=== PATIENT | female | born 1965 | race Caucasian/White ===

== ENCOUNTER 2020-01-21 07:39 | Outpatient (CLI) | payer OTHER, SELFPAY ==
--- NOTE | ~2020-01-21 | DEXA_ITS ---
Bone Density Report Name: Whitley Zarate Age: 54 Sex: Female Ethnicity: White Date of : 1965 Indication: postmenopausal; height loss; hysterectomy; Referring Provider: LORA ALEXANDER Study: Bone densitometry was performed. Exam Date: January 21, 2020 Accession number: [id number] Bone Density: Region BMD T-score Z-score Classification AP Spine (L1-L4) 1.185 1.3 2.4 Normal Femoral Neck (Left) 0.896 0.4 1.5 Normal Total Hip (Left) 1.072 1.1 1.8 Normal Total Hip Bilateral Avg 1.061 1.0 1.7 Normal Femoral Neck (Right) 0.840 -0.1 1.0 Normal Total Hip (Right) 1.048 0.9 1.6 Normal World Health Organization criteria for BMD impression classify patients as: Normal (T-score at or above -1.0), Osteopenia (T-score between -1.0 and -2.5), or Osteoporosis (T-score at or below -2.5). 10-year Fracture Risk: FRAX not reported because: All T-scores for Spine Total, Hip Total, Femoral Neck at or above -1.0 Previous Exams: Region Exam Age BMD T-score BMD Change BMD Change Date g/cm2 vs Baseline vs Previous AP Spine(L1-L4) 01/21/2020 54 1.185 1.3 -0.024(-2.0%)# -0.024(-2.0%)# 09/24/2015 49 1.209 1.5 Total Hip(Left) 01/21/2020 54 1.072 1.1 0.013(1.2%)# 0.013(1.2%)# 09/24/2015 49 1.059 1.0 Total Hip(Right) 01/21/2020 54 1.048 0.9 -0.020(-1.9%)# -0.020(-1.9%)# 09/24/2015 49 1.068 1.0 *Denotes significance at 95% confidence level, LSC for AP Spine = 0.022 g/cm2, LSC for Total Hip = 0.027 g/cm2 Clinical Information Provided by Patient: Has the following medical conditions: Hysterectomy Patient maximum height was 68 Menopause Age: 48 No regular weight bearing exercise Drinks caffeinated beverages Onset of menses at age 11 Number of children 2 Impression: The patient has normal bone mass. No significant bone loss was observed. Discussion: BONE DENSITY IS ABOVE THE MINIMUM DESIRABLE LEVEL AT ALL SKELETAL SITES TESTED. This patient?s bone mineral density is above the minimum desirable level (T-score -1.0 or better) at all sites measured. The patient should follow a healthful lifestyle (good nutrition with adequate calcium and vitamin D, and appropriate weight-bearing exercise). Follow-Up: Consider repeating this study in 5 years or sooner if there is some new clinical indication. Reported by: TEJAL on 01/21/2020 8:15:00 AM. Reviewed, dictated and finalized at location Juan J MORALES
--- NOTE | ~2020-01-21 | MM_ITS ---
EXAMINATION: MM screening mamie BI w larry HISTORY: Screening mammogram TECHNIQUE: Craniocaudal and mediolateral oblique 3-D tomosynthesis images were obtained and synthetic 2-D images were generated. CAD analysis was submitted and interpreted. COMPARISON: 07/06/2018, 01/09/2017, 09/24/2015 bilateral digital screening mammogram examinations BREAST PARENCHYMAL COMPOSITION: There are scattered areas of fibroglandular density. FINDINGS: There is no evidence of suspicious mass, calcification, or architectural distortion to sugg est malignancy in either breast. There has been no suspicious interval change. IMPRESSION: 1. No mammographic evidence of malignancy. 2. Recommend routine screening mammography in one year. BI-RADS Category 1: Negative Reviewed, dictated and finalized at location A.
== END 2020-01-21 07:40 | disposition home or self-care (01) ==
LOC: ANHIMG 07:42
PROVIDERS: PCP Family Medicine; Visit Provider Obstetrics & Gynecology
DX: Z78.0 Asymptomatic menopausal state (principal); Z12.31 Encounter for screening mammogram for malignant neoplasm of breast
CPT/HCPCS: 77063; 77067; 77080

== ENCOUNTER 2020-04-24 21:23 | Emergency (ER) | payer OTHER, SELFPAY ==
--- NOTE | ~2020-04-24 | CT_ITS ---
EXAMINATION: CT abdomen pelvis w con DATE: 04/24/2020 22:57 INDICATION: Upper abdominal pain and vomiting TECHNIQUE: Computed tomography (CT) of the abdomen and pelvis was performed with 100 mL Omnipaque-350 intravenous contrast. Automated exposure control and iterative reconstruction technique were employe d. The dose-length product was 1589.43 mGy-cm. COMPARISON: 02/25/2015 FINDINGS: There are patchy groundglass opacities throughout both lower lungs, many with centrilobular distribut ion consistent with pneumonia. Heart size is normal. No pericardial or pleural effusion. Small slidin g-type hiatal hernia. Diffuse hepatic steatosis. Gallbladder, spleen, pancreas, bilateral kidneys and left adrenal gland are normal. 1.3 cm right adrenal nodule which demonstrates low attenuation on CT dated 09/16/2009 consistent with adenoma. There are few scattered colonic diverticula without adjacent inflammatory change to suggest diverticulitis. Small bowel and appendix are normal. Bladder is [place]. The uterus is not identified and has likely been surgically resected. No free intraperitoneal gas or fluid. No pathologically enlarged abdominal or pelvic lymphadenopathy. Tiny fat-containing umbilic al hernia. L5 spondylolysis with bilateral pars intra-articular is defects and 3 mm anterolisthesis w ith respect to S1. IMPRESSION: 1. Patchy groundglass opacities throughout both lower lungs with differential including pneumonia inc luding atypical/viral, pulmonary edema, aspiration, drug induced toxicity, hypersensitivity pneumonit is and pulmonary hemorrhage. 2. Small sliding-type hiatal hernia. Reviewed, dictated and finalized at location A. IMPRESSION: 1. Patchy groundglass opacities throughout both lower lungs with differential i ncluding pneumonia including atypical/viral, pulmonary edema, aspiration, drug induced toxicity, hypersensitivity pneumonitis and pulmonary hemorrhage. 2. Small sliding-type hiatal hernia.
[2020-04-24 21:33] VITALS: BP 172/85; PULSE 84; RESP 19; O2SAT 99
[2020-04-24 21:49] LABS: Basophils Percent Auto 0.3 % (0.2-1.2); Eosinophils Absolute Auto 0.1 K/mm3 (0-0.3); Eosinophils Percent Auto 1.1 % (0-4.4); Hematocrit 39.7 % (37.0-47.0); Hemoglobin 13.7 g/dL (12.0-15.0); Immature Granulocyte Absolute 0.03 K/mm3 (0.00-0.031); Immature Granulocyte Percent A 0.5 % (0-0.5); Lymphocytes Absolute Auto 1.58 K/mm3 (0.9-3.2); Mean Corpuscular HGB Conc 34.5 g/dl (32-36); Mean Corpuscular Hemoglobin 30.6 pg (26-34); Mean Corpuscular Volume 88.6 fl (80-100); Mean Platelet Volume 10.1 fl (7.4-10.4); Monocytes Absolute Auto 0.5 K/mm3 (0.1-0.6); Monocytes Percent Auto 7.6 % (2.6-8.5); Neutrophils Absolute Auto 4.4 K/mm3 (1.3-6.7); Neutrophils Percent Auto 66.5 % (45.5-73.1); Platelet Count Result 172 k/mm3 (150-375); Red Blood Count 4.48 M/mm3 (4.2-5.4); Red Cell Distribution Width 12.6 % (11.5-14.5); White Blood Count 6.6 K/mm3 (4.5-10.0)
[2020-04-24 22:01] LABS: Alanine Aminotransferase 45 U/L (4-35); Albumin Level 4.1 g/dL (3.5-5.1); Alkaline Phosphatase 70 U/L (38-126); Anion Gap 8 mmol/L (8-16); Aspartate Amino Transferase 47 U/L (14-36); Bilirubin,Total 0.6 mg/dL (0.2-1.3); Blood Urea Nitrogen 13 mg/dL (7-17); Calcium 8.9 mg/dL (8.4-10.2); Carbon Dioxide 25 mmol/L (22-30); Chloride 107 mmol/L (98-107); Estimated CRCL calculation 95 ml/min; Estimated Glomerular Filt Rate > 60; Glucose 104 mg/dL (65-105); Lipase 51 U/L (23-300); Potassium 3.4 mmol/L (3.4-5.0); Sodium 140 mmol/L (137-145)
[2020-04-24] MEDS: PROMETHAZINE HCL 25 MG/ML AMPUL 12.5 MG IV PUSH (23:14)
[2020-04-24] MEDS: MORPHINE SULFATE 4 MG/ML INJ IV PUSH (23:14)
[2020-04-24 23:17] VITALS: BP 144/72; PULSE 61; RESP 18; O2SAT 99
[2020-04-24] MEDS: SODIUM CHLORIDE 0.9% IV 1,000 ML 999 ML IV CONT (23:17)
[2020-04-24 23:37] VITALS: BP 129/53; PULSE 62
[2020-04-24 23:38] VITALS: BP 153/89; PULSE 73
[2020-04-24 23:39] VITALS: BP 159/88; PULSE 70
[2020-04-24 23:59] LABS: Add Urine Microscopic? YES; Appearance Urine Clear (Clear); Bilirubin Urine Negative (Negative); Blood Urine Negative (Negative); Color Urine Yellow (Yellow); Glucose Urine UA Negative (Negative); Ketones Urine Negative (Negative); Leukocyte Esterase Ur Trace LEU/UL (Negative); Mucus Urine Rare /lpf; Nitrate Urine Negative (Negative); Protein Urine Negative (Negative); RBC Urine 0-2 /hpf (0-2); Squamous Epithelial Cell Urine Rare /hpf (Few)
[2020-04-25 00:03] LABS: Specific Grav Ur > 1.060 (1.001-1.035)
--- NOTE | 2020-04-25 00:34 | ED.GENADULT ---
HPI - General Adult General Chief complaint: Nausea/Vomiting/Diarrhea Stated complaint: vomiting, covid positive Time Seen by Provider: 04/24/20 21:32 History of Present Illness HPI narrative: Patient is a 54-year-old female who presents ER with nausea and vomiting. Reports its been extreme over the last couple days with lots of dry heaving. Very little emesis. She is also had 4 loose stools a day for the last couple of days. PCP called and Zofran which is been of no relief to her. Recently tested positive for COVID-19. Denies any new cough or shortness of breath. No fever/chills/sweats. No known sick contacts with GI illness. Related Data Allergies Allergy/AdvReac Type Severity Reaction Status Date / Time No Known Allergies Allergy Verified 04/24/20 21:32 Review of Systems Review of Systems: All systems reviewed & are unremarkable except as noted in HPI and below Constitutional: Constitutional: Denies chills, Reports fatigue and Denies fever(s) ENT: Denies nasal congestion and Denies sore throat Cardiovascular: Cardiovascular: Denies chest pain and Denies radiating jaw, neck or arm pain Respiratory: Respiratory: Denies cough, Denies dyspnea and Denies wheezing Gastrointestinal: Gastrointestinal: Reports abdominal pain (Diffuse discomfort from retching), Reports diarrhea, Reports nausea and Reports vomiting Genitourinary: Genitourinary: Denies nocturia and Denies dysuria PMFSH Past Medical History Medical History (Updated 04/25/20 @ 00:[address] MD) GERD (gastroesophageal reflux disease) H/O: HTN (hypertension) Surgical History Surgical History (Updated 04/25/20 @ 00:[address] MD) H/O: hysterectomy Family History Family History (Updated 02/12/15 @ 07:44 by DOCTOR UNKNOWN) Father Hypertension Mother Hypertension Family history of malignant neoplasm of kidney Other Family history of malignant neoplasm Social History Social History Smoking status: Never smoker Second hand tobacco smoke exposure: No Alcohol intake: current Exam Narrative: Exam Narrative: GENERAL: Uncomfortable-appearing, well-nourished, and in no acute distress. HEAD: Normocephalic, atraumatic. CHEST: Clear to auscultation. No respiratory distress. HEART: Regular rate and rhythm. Normal peripheral pulses. ABDOMEN: Soft, nontender, nondistended. EXTREMITIES: Normal range of motion. No edema. NEURO: Alert and oriented x3. PSYCH: Normal mood and affect. Course Course Emergency Course: Feels much better with morphine and Phenergan. Discharge home with supportive therapy. Informed of CT results and need for azithromycin for coverage related pneumonia and patient verbalized understanding. Vital Signs Vital signs: Vital Signs Pulse Rate 84 04/24/20 21:33 Respiratory Rate 19 04/24/20 21:33 Blood Pressure 172/85 H 04/24/20 21:33 Pulse Oximetry 99 04/24/20 21:33 Pulse Rate 70 04/24/20 23:39 Respiratory Rate 18 04/24/20 23:17 Blood Pressure 159/88 H 04/24/20 23:39 Pulse Oximetry 99 04/24/20 23:17 Medical Decision Making Vital Signs Vital Signs: Vital Signs Pulse Rate 84 04/24/20 21:33 Respiratory Rate 19 04/24/20 21:33 Blood Pressure 172/85 H 04/24/20 21:33 Pulse Oximetry 99 04/24/20 21:33 Pulse Rate 70 04/24/20 23:39 Respiratory Rate 18 04/24/20 23:17 Blood Pressure 159/88 H 04/24/20 23:39 Pulse Oximetry 99 04/24/20 23:17 Lab Data Result diagrams: 04/24/20 21:41 04/24/20 21:41 Labs: Lab Results 04/24/20 04/24/20 04/24/20 Range/Units 21:41 21:41 23:46 WBC 6.6 (4.5-10.0) K/mm3 RBC 4.48 (4.2-5.4) M/mm3 Hgb 13.7 (12.0-15.0) g/dL Hct 39.7 (37.0-47.0) % MCV 88.6 (80-100) fl MCH 30.6 (26-34) pg MCHC 34.5 (32-36) g/dl RDW 12.6 (11.5-14.5) % Plt Count 172 (150-375) k/mm3 MPV 10.1 (7.4-10.4) fl Immature Gran % (Auto) 0.5 (0-0
[2020-04-25 00:59] VITALS: BP 124/75; PULSE 58; RESP 18; O2SAT 98
== END 2020-04-25 01:01 | disposition home or self-care (01) ==
PROVIDERS: Emergency Provider Emergency Medicine; PCP Family Medicine
DX: U07.1 COVID-19 (principal); J12.89 Other viral pneumonia; R11.2 Nausea with vomiting, unspecified; K21.9 Gastro-esophageal reflux disease without esophagitis; I10 Essential (primary) hypertension
CPT/HCPCS: 36415; 74177; 80053; 81001; 83690; 85025; 87086; 87088; 96361; 96374; 96375; 99284; J2270; J2550; J7030; Q9967

== ENCOUNTER 2020-06-04 11:20 | Outpatient (CLI) | payer OTHER, SELFPAY ==
[2020-06-04 11:58] LABS: Alanine Aminotransferase 28 U/L (4-35); Albumin Level 4.3 g/dL (3.5-5.1); Alkaline Phosphatase 63 U/L (38-126); Anion Gap 9 mmol/L (8-16); Aspartate Amino Transferase 30 U/L (14-36); Bilirubin,Total 0.6 mg/dL (0.2-1.3); Blood Urea Nitrogen 20 mg/dL (7-17); Calcium 9.3 mg/dL (8.4-10.2); Carbon Dioxide 27 mmol/L (22-30); Chloride 107 mmol/L (98-107); Cholesterol 138 mg/dL (0-200); Estimated Glomerular Filt Rate > 60; Glucose 103 mg/dL (65-105); HDL Direct 31 mg/dL; Potassium 3.7 mmol/L (3.4-5.0); Sodium 143 mmol/L (137-145); Triglycerides 112 mg/dL (<150)
[2020-06-04 12:10] LABS: LDL Cholesterol Direct 83 mg/dL
== END 2020-06-04 11:21 | disposition home or self-care (01) ==
LOC: ANHLAB 11:21
PROVIDERS: Visit Provider Nurse Practitioner Family
DX: I10 Essential (primary) hypertension (principal); Z13.29 Encounter for screening for other suspected endocrine disorder
CPT/HCPCS: 36415; 80053; 80061; 84443

== ENCOUNTER 2020-08-21 07:49 | Emergency (ER) | payer OTHER, SELFPAY ==
[2020-08-21 07:56] VITALS: BP 196/98; PULSE 76; RESP 17; TEMP 36.6; O2SAT 100
--- NOTE | 2020-08-21 08:00 | ED.GENADULT ---
HPI - General Adult General Chief complaint: Neuro Symptoms/Deficit Stated complaint: allergice reaction Time Seen by Provider: 08/21/20 07:53 Source: patient Mode of arrival: ambulatory Limitations: no limitations History of Present Illness HPI narrative: Patient is a 54-year-old female who presents for evaluation facial weakness. Patient reports she had feeling as if she had some heaviness sensation in her face, both cheeks and lower jaw that started approximately 40 minutes ago. Patient was worried she was having a reaction to the new Covid vaccine which was administered to her at 6 AM. Patient has a history of hypertension, works overnight shift and has not had any of her hypertensive medication. She is denying any headache, vision changes, chest pain, difficulty with speech, shortness of breath, rashes, nausea, vomiting or diarrhea. No difficulty swallowing. No history of allergic reactions in the past. Patient denies any upper or lower extremity weakness or numbness. Related Data Allergies Allergy/AdvReac Type Severity Reaction Status Date / Time No Known Allergies Allergy Verified 08/21/20 08:02 Review of Systems Review of Systems: Narrative: CONSTITUTIONAL: Denies fever, chills, or sweats. EYES: Denies visual changes, redness, or discharge. ENT: Denies rhinorrhea, congestion, sore throat, or otalgia. CARDIOVASCULAR: Denies chest pain, palpitations, or edema. RESPIRATORY: Denies cough or dyspnea. GASTROINTESTINAL: Denies abdominal pain, nausea, vomiting, or diarrhea. GENITOURINARY: Denies dysuria or hematuria. SKIN: Denies rash or itching. MUSCULOSKELETAL: Denies back pain, joint pain, or myalgia. NEUROLOGIC: Denies headache, numbness, or weakness. FOR[facility]LY [facility] Past Medical History Medical History GERD (gastroesophageal reflux disease) H/O: HTN (hypertension) Surgical History Surgical History H/O: hysterectomy History of dilation and curettage History of endometrial ablation History of total hysterectomy Previous section x 2 Family History Family History Father Hypertension Mother Hypertension Family history of malignant neoplasm of kidney Other Family history of malignant neoplasm Social History Social History Smoking status: Never smoker Second hand tobacco smoke exposure: No Alcohol intake: current Gender identity (if verbalized by the patient): Female Exam Narrative: Exam Narrative: GENERAL: Awake, alert, conversant HEAD: Normocephalic, atraumatic. No facial edema. No lip edema. EYES: PERRLA and EOMI. ENT: Nares clear, no rhinorrhea or epistaxis. Mucous membranes moist. Uvula is midline. No trismus. No tongue deviation. NECK: Supple. CHEST: No respiratory distress, breathing even and non labored HEART: Regular rate, sinus rhythm ABDOMEN:Non distended, non tender EXTREMITIES: Normal range of motion. No edema. SKIN: Warm, dry, no rash. NEURO:No focal deficits. Alert and oriented x3. Finger to nose intact bilaterally. EOMs intact without nystagmus. No facial droop/asymmetry noted bilaterally. Pt can discern sharp/dull in V1,V2,V3 distribution. Uvula midline. No tongue deviation. Smile is symmetric. Grimace intact. Intact sensation in face. Hearing intact bilaterally. Shoulder shrug intact. Strength 5/5 bilateral upper extremities. Strength 5/5 bilateral lower extremities. Reflexes 2+ patellar. Heel to arevalo intact bilaterally. Ambulatory without ataxia. Course Vital Signs Vital signs: Vital Signs Temperature 36.6 C 08/21/20 07:56 Pulse Rate 76 08/21/20 07:56 Respiratory Rate 17 08/21/20 07:56 Blood Pressure 196/98 H 08/21/20 07:56 Pulse Oximetry 100 08/21/20 07:56 Temperature 36.6 C 08/21/20 07:56 Pulse Rate 71 08/21/20 08:38 Res
[2020-08-21] MEDS: diphenhydrAMINE HCl CAP 25 MG CAPSULE PO (08:07)
[2020-08-21] MEDS: FAMOTIDINE 20 MG TABLET PO (08:07)
[2020-08-21 08:38] VITALS: BP 134/87; PULSE 71; RESP 14; O2SAT 99
== END 2020-08-21 09:47 | disposition home or self-care (01) ==
PROVIDERS: Emergency Provider Emergency Medicine
DX: R20.2 Paresthesia of skin (principal); K21.9 Gastro-esophageal reflux disease without esophagitis; I10 Essential (primary) hypertension
CPT/HCPCS: 99283; A9270; J1100

== ENCOUNTER → 2020-12-22 10:57 | Outpatient (CLI) | payer OTHER, SELFPAY ==
[2020-12-22 13:44] LABS: Influenza Control Positive
[2020-12-22 20:31] LABS: SARS-CoV-2 RNA PCR Negative
== END ==
PROVIDERS: PCP Family Medicine; Visit Provider Nurse Practitioner Family
DX: Z20.822 Contact with and (suspected) exposure to COVID-19 (principal); R68.89 Other general symptoms and signs
CPT/HCPCS: 87804; C9803; U0003; U0005

== ENCOUNTER 2020-12-23 13:08 | Outpatient (CLI) | payer OTHER, SELFPAY ==
--- NOTE | ~2020-12-23 | XR_ITS ---
EXAMINATION: XR chest 2V DATE: 12/23/2020 13:30 INDICATION: Fever. Cough. TECHNIQUE: Frontal and lateral views of the chest were obtained. COMPARISON: Chest 2 views 02/15/2010, CT abdomen and pelvis 04/24/2020 FINDINGS: The chest demonstrates clear lungs without pneumonia, pleural effusion, or pneumothorax. Th e heart size is normal. IMPRESSION: 1. No acute cardiopulmonary disease. Reviewed, dictated and finalized at location B.
[2020-12-23 13:28] LABS: Basophils Absolute Auto 0.1 K/mm3 (0.0-0.1); Basophils Percent Auto 0.3 % (0.2-1.2); Eosinophils Absolute Auto 0.3 K/mm3 (0-0.3); Eosinophils Percent Auto 1.7 % (0-4.4); Hemoglobin 13.9 g/dL (12.0-15.0); Immature Granulocyte Percent A 0.7 % (0-0.5); Lymphocytes Absolute Auto 2.38 K/mm3 (0.9-3.2); Lymphocytes Percent Auto 16.6 % (18.3-44.2); Mean Corpuscular HGB Conc 33.9 g/dl (32-36); Mean Corpuscular Hemoglobin 29.9 pg (26-34); Mean Corpuscular Volume 88.2 fl (80-100); Mean Platelet Volume 10.2 fl (7.4-10.4); Monocytes Percent Auto 6.6 % (2.6-8.5); Neutrophils Absolute Auto 10.6 K/mm3 (1.3-6.7); Neutrophils Percent Auto 74.1 % (45.5-73.1); Platelet Count Result 245 k/mm3 (150-375); Red Blood Count 4.65 M/mm3 (4.2-5.4); Red Cell Distribution Width 12.7 % (11.5-14.5); White Blood Count 14.3 K/mm3 (4.5-10.0)
[2020-12-23 13:39] LABS: Alanine Aminotransferase 24 U/L (4-35); Albumin Level 4.2 g/dL (3.5-5.1); Alkaline Phosphatase 79 U/L (38-126); Anion Gap 8 mmol/L (8-16); Aspartate Amino Transferase 34 U/L (14-36); Bilirubin,Total 0.4 mg/dL (0.2-1.3); Blood Urea Nitrogen 20 mg/dL (7-17); Calcium 9.3 mg/dL (8.4-10.2); Carbon Dioxide 30 mmol/L (22-30); Chloride 103 mmol/L (98-107); Estimated Glomerular Filt Rate > 60; Glucose 96 mg/dL (65-105); Potassium 3.7 mmol/L (3.4-5.0); Sodium 141 mmol/L (137-145)
[2020-12-25 14:06] LABS: CMV IgG Antibody >10.00 U/mL (<0.60)
[2020-12-26 19:45] LABS: CMV IgM Antibody <30.00 AU/mL (<30.00)
[2020-12-27 21:57] LABS: EBV Nuclear Ab Antibody >600.00 U/mL (<18.00); EBV Nuclear Ab Interpretation Past; EBV Virus Capsid Ag IgM Ab <36.00 U/mL (<36.00)
== END 2020-12-23 13:09 | disposition home or self-care (01) ==
LOC: ANHLAB 13:12
PROVIDERS: PCP Family Medicine; Visit Provider Nurse Practitioner Family
DX: R50.9 Fever, unspecified (principal); R68.89 Other general symptoms and signs; R05 Cough
CPT/HCPCS: 36415; 71046; 80053; 85025; 86644; 86645; 86664; 86665

== ENCOUNTER 2020-12-24 16:45 | Observation (INO) | payer OTHER, SELFPAY ==
[2020-12-24] VITALS (7 sets, daily range): BP systolic 112–167; BP diastolic 87–103; PULSE 85–102; RESP 14–21; TEMP 36.3–37.6; O2SAT 96–100; BMI 43.9
--- NOTE | ~2020-12-24 | US_ITS ---
EXAMINATION: US venous doppler [facility] DATE: 12/25/2020 09:02 INDICATION: Respiratory abnormality with hemoptysis. Fever. TECHNIQUE: Grayscale ultrasound images without and with compression and Doppler ultrasound images of the bilateral lower extremity veins were obtained. COMPARISON: None. FINDINGS: The visualized portions of right common femoral vein, profunda (deep) femoral vein, femoral vein, pop liteal vein, posterior tibial veins, peroneal veins, gastrocnemius vein and greater saphenous vein ou tflow are patent. The visualized portions of left common femoral vein, profunda femoral vein, femoral vein, popliteal v ein, posterior tibial veins, peroneal veins, gastrocnemius vein and greater saphenous vein outflow ar e patent. IMPRESSION: 1. No deep venous thrombosis in either lower limb. Reviewed, dictated and finalized at location A.
--- NOTE | ~2020-12-24 | CT_ITS ---
EXAMINATION: CTA chest PE protocol DATE: 12/24/2020 17:48 CDT INDICATION: Fever, cough and hemoptysis TECHNIQUE: Computed tomographic angiography (CTA) of the chest was performed with 100 mL Omnipaque-35 0 intravenous contrast. The dose-length product was 982.23 mGy-cm. Maximum intensity projection 3D-re constructions of the aorta and other arteries were constructed by the technologist on a separate work station. Automated exposure control and iterative reconstruction technique were employed. COMPARISON: None. FINDINGS: Heart size is normal. Mild mediastinal lymphadenopathy. For instance prevascular lymph node measures 1 cm, axial image 82. Subcarinal lymph node measures 12 mm. No significant hilar lymphadeno benita. No evidence for aortic aneurysm or dissection. There are possible mild filling defects in the left lower lobe subsegmental pulmonary arteries, altho ugh evaluation limited by motion artifact. There is a wedge-shaped area of consolidation in the left lower lobe peripheral to this location, suspicious for pulmonary infarction. No endobronchial lesions . Trace left pleural effusion. 1.5 cm right adrenal nodule, likely benign adenoma in the absence of k nown malignancy. IMPRESSION: 1. Possible subsegmental pulmonary embolism left lower lobe with associated pulmonary infarction. Can not exclude other etiologies for left lower lobe consolidation such as pneumonia or neoplasm. Recomme nd follow-up CT as clinically warranted. 2: Mediastinal lymphadenopathy, nonspecific. Reviewed, dictated and finalized at location A. IMPRESSION: 1. Possible subsegmental pulmonary embolism left lower lobe with associated pul monary infarction. Cannot exclude other etiologies for left lower lobe consolid ation such as pneumonia or neoplasm. Recommend follow-up CT as clinically warra nted. 2: Mediastinal lymphadenopathy, nonspecific.
--- NOTE | ~2020-12-24 | CT_ITS ---
EXAMINATION: CTA chest PE protocol DATE: 12/26/2020 08:16 INDICATION: Left lower lobe pneumonia. TECHNIQUE: Computed tomography angiography (CTA) of the chest was performed with 100 mL Omnipaque-350 intravenous contrast timed to evaluate the pulmonary arteries. Coronal maximum intensity projection 3D-reconstructions were created by the technologist. Automated exposure control and iterative reconst ruction technique were employed. The dose-length product was 1047.50 mGy-cm. COMPARISON: Chest CT 12/24/2020, CT abdomen and pelvis 02/25/2015 FINDINGS: There are airspace and groundglass opacities and septal thickening in left lower lobe, cons istent with pneumonia. There is a trace left pleural effusion. The heart size is normal. No pericardi al effusion. There is no pulmonary embolus. There is mild left hilar and mediastinal lymphadenopathy, likely reactive. There is diffuse hepatic steatosis. There is a 17 mm mass in right adrenal gland me asuring soft tissue attenuation, stable from 02/25/2015, likely an adenoma. There is a 6.4 x 4.2 cm li faith posterior to distal right clavicle. There is mild thoracic spondylosis. IMPRESSION: 1. No pulmonary embolus. 2. Stable left lower lobe pneumonia. 3. Mild left hilar and mediastinal lymphadenopathy, likely reactive. Reviewed, dictated and finalized at location A.
[2020-12-24 17:29] LABS: Basophils Absolute Auto 0.1 K/mm3 (0.0-0.1); Basophils Percent Auto 0.4 % (0.2-1.2); Eosinophils Absolute Auto 0.3 K/mm3 (0-0.3); Eosinophils Percent Auto 1.7 % (0-4.4); Immature Granulocyte Absolute 0.14 K/mm3 (0.00-0.031); Immature Granulocyte Percent A 0.9 % (0-0.5); Lymphocytes Absolute Auto 2.26 K/mm3 (0.9-3.2); Lymphocytes Percent Auto 15.1 % (18.3-44.2); Mean Corpuscular Hemoglobin 30.6 pg (26-34); Mean Corpuscular Volume 87.5 fl (80-100); Monocytes Absolute Auto 0.8 K/mm3 (0.1-0.6); Monocytes Percent Auto 5.5 % (2.6-8.5); Neutrophils Absolute Auto 11.5 K/mm3 (1.3-6.7); Neutrophils Percent Auto 76.4 % (45.5-73.1); Platelet Count Result 275 k/mm3 (150-375); Red Blood Count 4.57 M/mm3 (4.2-5.4); Red Cell Distribution Width 12.4 % (11.5-14.5)
[2020-12-24 17:34] LABS: Prothrombin Time 13.3 Seconds (11.1-14.7)
[2020-12-24 17:36] LABS: Anion Gap 8 mmol/L (8-16); Blood Urea Nitrogen 21 mg/dL (7-17); Calcium 9.6 mg/dL (8.4-10.2); Carbon Dioxide 30 mmol/L (22-30); Chloride 103 mmol/L (98-107); Estimated CRCL calculation 83 ml/min; Estimated Glomerular Filt Rate > 60; Glucose 112 mg/dL (65-105); Potassium 3.7 mmol/L (3.4-5.0); Sodium 141 mmol/L (137-145)
--- NOTE | 2020-12-24 18:09 | ECG_ITS ---
Measurements Intervals [place] Rate: 94 P: 37 VT: 138 QRS: 15 QRSD: 86 T: 21 QT: 360 QTc: 452 Interpretive Statements SINUS RHYTHM POSSIBLE LEFT ATRIAL ENLARGEMENT BORDERLINE ST-T WAVE ABNORMALITY- ANTEROLAT/INF LEADS BASELINE ARTIFACT- I, II, AVR, AVF, V2 BORDERLINE ECG Electronically Signed On 12-24-2020 20:02:14 CDT by Beau Cohn D.O.
--- NOTE | 2020-12-24 18:13 | ED.GENADULT ---
HPI - General Adult General Chief complaint: Upper Respiratory Infection Stated complaint: fever, cough x 1 week Time Seen by Provider: 12/24/20 18:08 Source: RN notes reviewed History of Present Illness HPI narrative: Patient presents emergency department from PCPs office for hemoptysis. Patient states she has not been feeling well for the past week with symptoms of upper respiratory infection states she is been feeling tired and fatigued with a mild cough and fevers at night up to 101. Patient states that today she started having hemoptysis and went to the PCPs office and referred to the ER for further evaluation she denies having any chest pain, abdominal pain nausea or vomiting or any other symptoms patient has had Covid in April 2020 has had a Covid vaccine since that time with the patient receiving the Pfizer vaccine she denies any previous history of blood clots denies tobacco use is on blood pressure medication Related Data Allergies Allergy/AdvReac Type Severity Reaction Status Date / Time No Known Allergies Allergy Verified 12/24/20 17:08 Review of Systems Review of Systems: Narrative: Gen.: Reports fever ENT: Denies congestion Respiratory: See HPI CV: Denies chest pain or palpitations GI: Denies abdominal pain nausea, emesis or diarrhea denies burning, urgency, frequency or hematuria Musculoskeletal: Denies back pain or muscle pain Neuro: Denies numbness, tingling, weakness or focal weakness Skin: Denies rash Except as documented, all other systems reviewed and negative [facility] Past Medical History Medical History BMI 40.0-44.9, adult Body mass index [BMI] 34.0-34.9, adult (04/25/19) Body mass index [BMI] 45.0-49.9, adult (04/19/18) Body mass index [BMI]40.0-44.9, adult (03/09/17) Encounter for gynecological examination (general) (routine) without abnormal findings Encounter for other specified surgical aftercare Encounter for screening for malignant neoplasm of colon (03/09/17) GERD (gastroesophageal reflux disease) H/O: HTN (hypertension) Postmenopausal Recurrent ventral incisional hernia Vaginal dryness, menopausal Surgical History Surgical History H/O: hysterectomy History of dilation and curettage History of endometrial ablation History of total hysterectomy Previous section x 2 Family History Family History Father Hypertension Parkinson's disease Hyperlipidemia Mother Hypertension Family history of malignant neoplasm of kidney Sibling Hypertension Other Family history of malignant neoplasm Social History Social History Smoking status: Never smoker Second hand tobacco smoke exposure: No Alcohol intake: current Substance use: never Substance use type: does not use Additional occupation/education comments: RN Gender identity (if verbalized by the patient): Female Exam Narrative: Exam Narrative: APPEARANCE: No acute distress, nontoxic, resting in bed EYES: EOMI HEENT: Normocephalic, atraumatic, OMM RESPIRATORY: No respiratory distress Clear to auscultation bilaterally with no rhonchi wheezing or rales. CARDIOVASCULAR: Regular rate and rhythm without murmurs rubs or gallops. ABDOMINAL: Soft, nontender, nondistended, no rebound or guarding MUSCULOSKELETAl: Moves all extremities. No clubbing, cyanosis or edema. NEURO: Awake and alert. Following commands, speech normal, no focal deficits SKIN:: Warm, dry. No rashes lesions or abrasions PSYCHIATRIC: Normal affect/mood, Course Course Emergency Course: Discussed with Dr. Minor for pulmonary presentation work-up at this time recommends treating patient with both Lovenox as well as treatment for pneumonia will follow as inpatient Called Dr. Bullard and updated on CTA chest Discussed with TRACI Chavez for Dr. Gomez
--- NOTE | 2020-12-24 18:35 | PC.NURSE ---
Arrives ambulatory steady gait from triage, c/o feeling sick for a week, weakness, fevers x1 week, cough starting today with blood and clots, CTA today confirmed PE, denies hx blood clots, no thinners. Denies dyspnea on exertion.
[2020-12-24 19:04] LABS: Lactic Acid Reflex 0.8 mmol/L (0.7-2.1)
[2020-12-24 19:15] LABS: Troponin I < 0.012 ng/mL (0.000-0.034)
--- NOTE | 2020-12-24 19:21 | PC.NURSE ---
Pt states she presented to ED due to respiratory symptoms, coughing up blood and intermittent fever, chills with body aches at night. Pt denies nausea and emesis. Pt recently diagnosed with pneumonia. Pt alert and oriented x4 at this time. Breathing noted to be even and unlabored with O2 saturation at 96% on room air. Vitals are stable. Pt able to speak without difficulty. Spouse present at bedside. Call button and personal items within reach. Pt advised to press call button for assistance.
--- NOTE | 2020-12-24 19:58 | PC.NURSE ---
Report called to Lisa. Weston to send pt to floor.
[2020-12-24] MEDS: ENOXAPARIN 120 MG/0.8 ML SYRINGE SUB-Q (19:59)
--- NOTE | 2020-12-24 20:12 | PM.IMHP ---
H&P: HPI History of Present Illness Date/Time: 12/24/20 20:12 Chief Complaint: Hemoptysis today Narrative: This is a pleasant 55-year-old female with known history of hypertension and GERD who presented to the hospital from her primary care doctor's office secondary to bloody sputum. The patient is known to have had COVID-19 back in April but had been doing well since then. She reports that this past she started to feel fatigued and had fevers up to 101? F. Over the weekend she started to notice that she was developing exertional dyspnea. She was getting short of breath with talking and with any short distance walking. Today the patient started to cough bright red blood with clots and was sent to the hospital for evaluation by her doctor. The patient denies having any chest pain, sore throat, palpitations, abdominal pain, dysuria, hematuria, diarrhea, rectal bleeding, lower extremity pain, swelling, or redness. She denies having any previous history of blood clotting. She also denies any history of malignancy, hormone replacement therapy, or recent trauma. She does report however that in the beginning of November she traveled by car to [place] with her which was an 18 hour ride. The patient denies any family history of thrombophilia. The patient underwent CTA chest for PE protocol in the emergency room today which revealed possible subsegmental pulmonary embolism left lower lobe with associated pulmonary infarction and mediastinal lymphadenopathy. ER provider has treated the patient with therapeutic Lovenox, IV antibiotics, and consulted pulmonology who will see her tomorrow. On my encounter with the patient she is currently asymptomatic and has no other complaints. Review of Systems Review of Systems: All systems reviewed & are unremarkable except as noted in HPI and below PMFSH Past Medical History Medical History BMI 40.0-44.9, adult Body mass index [BMI] 34.0-34.9, adult (04/25/19) Body mass index [BMI] 45.0-49.9, adult (04/19/18) Body mass index [BMI]40.0-44.9, adult (03/09/17) Encounter for gynecological examination (general) (routine) without abnormal findings Encounter for other specified surgical aftercare Encounter for screening for malignant neoplasm of colon (03/09/17) GERD (gastroesophageal reflux disease) H/O: HTN (hypertension) Postmenopausal Recurrent ventral incisional hernia Vaginal dryness, menopausal Surgical History Surgical History H/O: hysterectomy History of dilation and curettage History of endometrial ablation History of total hysterectomy Previous section x 2 Family History Family History Father Hypertension Parkinson's disease Hyperlipidemia Mother Hypertension Family history of malignant neoplasm of kidney Sibling Hypertension Other Family history of malignant neoplasm Social History Social History Smoking status: Never smoker Second hand tobacco smoke exposure: No Alcohol intake: current Substance use: never Substance use type: does not use Additional occupation/education comments: RN Gender identity (if verbalized by the patient): Female Meds Home Medications and Allergies Home Medications Medication Instructions Recorded Confirmed Type hydrochlorothiazide 25 mg tablet 25 mg PO DAILY #90 tablet 06/04/20 07/09/20 Rx losartan 100 mg tablet 100 mg PO DAILY #90 tablet 06/04/20 07/09/20 Rx omeprazole 40 mg capsule,delayed 40 mg PO DAILY #90 cap 06/04/20 07/09/20 Rx release Allergies Allergy/AdvReac Type Severity Reaction Status Date / Time No Known Allergies Allergy Verified 12/24/20 17:08 Vital Signs Vital Signs - 24 hr 12/24/20 17:06 12/24/20 18:30 12/24/20 19:21 Temperature 36.9 C Pulse Rate
--- NOTE | 2020-12-24 21:02 | ADMGEN ---
This patient, Whitley Zarate, was admitted to 2 Medical Room 260-01. Patient/family oriented to hospital policies and general routines including ID bracelet, bed and alarms, visiting hours, pain management, procedures, bathroom and other care routines, personal items, smoking policy, room service/diet, and visiting hours. Information on how to activate the Rapid Response Team has been discussed. Patient/Family are encouraged to report perceived risks to care and to ask questions if they do not understand what they are told or what they should do.
[2020-12-24 21:45] LABS: Troponin I < 0.012 ng/mL (0.000-0.034)
[2020-12-24] MEDS: LORazepam (*CRX) 0.5 MG TABLET PO (22:46)
[2020-12-25] VITALS (9 sets, daily range): BP systolic 111–136; BP diastolic 51–63; PULSE 75–88; RESP 16–20; TEMP 36–36.5; O2SAT 97–98
[2020-12-25 00:49] LABS: Troponin I < 0.012 ng/mL (0.000-0.034)
[2020-12-25] MEDS: LORazepam (*CRX) 0.5 MG TABLET PO (03:53)
[2020-12-25 05:40] LABS: Basophils Absolute Auto 0.1 K/mm3 (0.0-0.1); Basophils Percent Auto 0.4 % (0.2-1.2); Eosinophils Absolute Auto 0.2 K/mm3 (0-0.3); Eosinophils Percent Auto 1.4 % (0-4.4); Hematocrit 36.5 % (37.0-47.0); Hemoglobin 12.4 g/dL (12.0-15.0); Immature Granulocyte Absolute 0.12 K/mm3 (0.00-0.031); Immature Granulocyte Percent A 0.8 % (0-0.5); Lymphocytes Absolute Auto 2.37 K/mm3 (0.9-3.2); Lymphocytes Percent Auto 15.6 % (18.3-44.2); Mean Corpuscular Hemoglobin 29.8 pg (26-34); Mean Corpuscular Volume 87.7 fl (80-100); Mean Platelet Volume 10.3 fl (7.4-10.4); Monocytes Absolute Auto 0.8 K/mm3 (0.1-0.6); Monocytes Percent Auto 4.9 % (2.6-8.5); Neutrophils Absolute Auto 11.7 K/mm3 (1.3-6.7); Neutrophils Percent Auto 76.9 % (45.5-73.1); Platelet Count Result 254 k/mm3 (150-375); Red Blood Count 4.16 M/mm3 (4.2-5.4); Red Cell Distribution Width 12.4 % (11.5-14.5); White Blood Count 15.2 K/mm3 (4.5-10.0)
[2020-12-25 05:53] LABS: Alanine Aminotransferase 24 U/L (4-35); Albumin Level 3.8 g/dL (3.5-5.1); Alkaline Phosphatase 69 U/L (38-126); Anion Gap 8 mmol/L (8-16); Aspartate Amino Transferase 27 U/L (14-36); Bilirubin,Total 0.4 mg/dL (0.2-1.3); Blood Urea Nitrogen 20 mg/dL (7-17); Calcium 8.8 mg/dL (8.4-10.2); Carbon Dioxide 28 mmol/L (22-30); Chloride 100 mmol/L (98-107); Estimated CRCL calculation 97 ml/min; Estimated Glomerular Filt Rate > 60; Glucose 146 mg/dL (65-105); Potassium 3.5 mmol/L (3.4-5.0); Sodium 136 mmol/L (137-145)
[2020-12-25] MEDS: ENOXAPARIN 120 MG/0.8 ML SYRINGE SUB-Q ×2 (07:43→18:50)
[2020-12-25] MEDS: hydroCHLOROthiazide 25 MG TABLET PO (08:09)
[2020-12-25] MEDS: LOSARTAN POTASSIUM 100 MG TABLET PO (08:10)
[2020-12-25] MEDS: PANTOPRAZOLE 40 MG TABLET PO ×2 (08:10→20:13)
--- NOTE | 2020-12-25 08:30 | PC.NURSE ---
To Radiology per wheelchair for ultrasound
--- NOTE | 2020-12-25 10:43 | PM.CNPUL ---
Assessment and Plan Assessment and plan (1) Community acquired pneumonia: Qualifiers: Laterality: left Lung location: lower lobe of lung Qualified Code(s): J18.9 - Pneumonia, unspecified organism Code(s): J18.9 - Pneumonia, unspecified organism Status: Acute Assessment and Plan: The patient's clinical history, examination and CT scan findings which I viewed myself or more consistent with community-acquired pneumonia rather than a pulmonary embolism with infarct. She had significant leukocytosis, lack of pleuritic chest pain and other symptoms that point more towards pneumonia. The CT scan shows a left lower lobe consolidation with surrounding haziness or ground-glass. I agree with the current treatment plan which is ceftriaxone plus of this azithromycin which can be switched to an oral fluoroquinolones such as levofloxacin when ready for discharge. I will continue Lovenox at therapeutic doses currently but repeat the CT of the chest tomorrow with IV contrast, at that time if there is no convincing evidence of a persistent pulmonary embolism then I will discontinue therapeutic anticoagulation. I will also start her on lactated Ringer's 75 cc an hour for 24-48 hours. 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 She states that the hemoptysis was mild and only 2 or 3 times the 1st was bright red blood and the 2nd was more of a blood clot. She does admit that there was sputum mixed with blood. She has no history of smoking cigarettes or anything else. She did develop COVID-19 in April of 2020 but recovered fully from that. She has received full vaccination for COVID-19 since then. She did travel to [place] on November 06 for about 8 days by car but took multiple stops and there was no. Of immobility for long period of time. She denies taking any hormone replacement therapy, denies any history of cancer or recent surgery. She denies any history of pulmonary embolism or DVT. She denies any history of lung diseases. There is no family history of thromboembolic disease either. A CT of the chest showed a dense left lower lobe consolidation and reported a possible subsegmental pulmonary emboli leading into the consolidative space. A differential of PE with pulmonary infarct versus pneumonia was given. Her symptoms though are more indicative of pneumonia rather than PE. The patient denies any pleuritic chest pain whatsoever And her lower extremity Dopplers for DVT were negative. Review of Systems Review of Systems: All systems reviewed & are unremarkable except as noted in HPI and below PMFSH Past Medical History Medical History BMI 40.0-44.9, adult Body mass index [BMI] 34.0-34.9, adult (04/25/19) Body mass index [BMI] 45.0-49.9, adult (04/19/18) Body mass index [BMI]40.0-44.9, adult (03/09/17) Encounter for gynecological examination (general) (routine) without abnormal findings Encounter for other specified surgical aftercare Encounter for screening for malignant neoplasm of colon (03/09/17) GERD (gastroesophageal reflux disease) H/O: HTN (hypertension) Postmenopausal Recurrent ventral incisional hernia Vaginal dryness, menopausal Surgical History Surgical History H/O: hysterectomy History of dilation and curettage History of endometrial ablation History of total hysterectomy Previous section x 2 Family History Family History Father Hypertension Parkinson's disease Hyperlipidemia Mother Hypertension Family histor
[2020-12-25] MEDS: LACTATED RINGERS 1,000 ML 75 ML IV CONT (11:35)
--- NOTE | 2020-12-25 11:36 | PM.IMPN ---
Progress Note: A&P Assessment and Plan (1) Embolism, pulmonary with infarction: Code(s): I26.99 - Other pulmonary embolism without acute cor pulmonale Status: Acute Assessment and Plan: Possible finding based on CTA chest results and history of hemoptysis which has resolved. Dr. Byers has been consulted and appreciate recommendations. Plans for repeat CTA chest tomorrow for reevaluation. Continue with therapeutic Lovenox of 1 mg/kg Q12hr for now Await CTA chest results Will have CC to go Xarelto and Eliquis if PE found on CTA tomorrow; patient prefers cheapest option. Continue pulmonology recommendations. Pain control as needed (2) Community acquired pneumonia: Qualifiers: Laterality: left Lung location: lower lobe of lung Qualified Code(s): J18.9 - Pneumonia, unspecified organism Code(s): J18.9 - Pneumonia, unspecified organism Status: Acute Assessment and Plan: Likely LLL CAP based on consolidation on CTA chest. Appreciate Pulmonology input. Leukocytosis stable with WBC at 15.2k Continue IV Rocephin and azithromycin for now; plans for transitioning to PO fluoroquinolone once clinically improved Sputum and blood cultures pending. Monitor closely (3) Leukocytosis: Qualifiers: Leukocytosis type: unspecified Qualified Code(s): D72.829 - Elevated white blood cell count, unspecified Code(s): D72.829 - Elevated white blood cell count, unspecified Status: Acute Assessment and Plan: Likely secondary to acute PE versus pneumonia. Monitor CBCD (4) Hemoptysis: Code(s): R04.2 - Hemoptysis Status: Acute Assessment and Plan: Likely secondary to pulmonary embolism. Resolved. (5) H/O: HTN (hypertension): Code(s): Z86.79 - Personal history of other diseases of the circulatory system Status: Chronic Assessment and Plan: BP 110s sys most recently Monitor blood pressure. Continue hydrochlorothiazide and losartan. (6) GERD (gastroesophageal reflux disease): Qualifiers: Esophagitis presence: esophagitis presence not specified Qualified Code(s): K21.9 - Gastro-esophageal reflux disease without esophagitis Code(s): K21.9 - Gastro-esophageal reflux disease without esophagitis Status: Chronic Assessment and Plan: Continue omeprazole Subjective Date/time seen: 12/25/20 11:36 Interval history: Patient is a pleasant 55-year-old female with known history of hypertension and GERD who is seen in follow up for suspected PE and associated pulmonary infarct based on CTA chest, as well as, CAP. Patient states she feels overall better today. Still has some RAYO. Hemoptysis has resolved. Subjective f/c and myalgias/back pain have resolved as well. No other complaints at the moment. Denies headaches, dizziness, lightheadedness, changes in v/h, pleuritic cp/palpitations, n/v/d/c, abd pain, changes in BMs, dysuria, hematuria, cloudy urine, calf pain/swelling. Review of Systems Review of Systems: All systems reviewed & are unremarkable except as noted in HPI and below Exam Narrative: Exam Narrative: General: Patient in semi-pack's in bed in no acute distress. HEENT: Normocephalic, EOMI Cardiovascular: Rate and rhythm are regular. No notable murmur, rub, or gallop. Tele shows apparent NSR with PVCs vs artifact; asymptomatic Respiratory: Left lower lung field has crackles, but otherwise lungs CTAB. Non-labored breathing. On RA at time of visit Abdomen: Soft, non-tender, non-distended, bowel sounds present. Extremities: Peripheral pulses intact. No edema. NTTP b/l calves Neuro: No focal neurological deficits. Speech is clear. Objective Data Vi
[2020-12-25] MEDS: ACETAMINOPHEN 325 MG TABLET 650 MG PO (20:12)
[2020-12-26] VITALS: PULSE 74
[2020-12-26] MEDS: LACTATED RINGERS 1,000 ML 75 ML IV CONT (00:35)
[2020-12-26 04:00] VITALS: PULSE 81
[2020-12-26 05:20] LABS: Basophils Percent Auto 0.3 % (0.2-1.2); Eosinophils Absolute Auto 0.3 K/mm3 (0-0.3); Eosinophils Percent Auto 1.9 % (0-4.4); Hematocrit 34.6 % (37.0-47.0); Hemoglobin 11.9 g/dL (12.0-15.0); Immature Granulocyte Absolute 0.12 K/mm3 (0.00-0.031); Immature Granulocyte Percent A 0.9 % (0-0.5); Lymphocytes Absolute Auto 2.21 K/mm3 (0.9-3.2); Lymphocytes Percent Auto 17.2 % (18.3-44.2); Mean Corpuscular HGB Conc 34.4 g/dl (32-36); Mean Corpuscular Hemoglobin 29.8 pg (26-34); Mean Corpuscular Volume 86.5 fl (80-100); Mean Platelet Volume 10.1 fl (7.4-10.4); Monocytes Absolute Auto 0.9 K/mm3 (0.1-0.6); Monocytes Percent Auto 6.9 % (2.6-8.5); Neutrophils Absolute Auto 9.4 K/mm3 (1.3-6.7); Neutrophils Percent Auto 72.8 % (45.5-73.1); Platelet Count Result 244 k/mm3 (150-375); Red Cell Distribution Width 12.1 % (11.5-14.5); White Blood Count 12.9 K/mm3 (4.5-10.0)
[2020-12-26 05:35] LABS: Anion Gap 6 mmol/L (8-16); Blood Urea Nitrogen 18 mg/dL (7-17); Calcium 8.5 mg/dL (8.4-10.2); Carbon Dioxide 29 mmol/L (22-30); Chloride 102 mmol/L (98-107); Estimated CRCL calculation 97 ml/min; Estimated Glomerular Filt Rate > 60; Glucose 115 mg/dL (65-105); Magnesium 1.9 mg/dL (1.6-2.3); Potassium 3.3 mmol/L (3.4-5.0); Sodium 137 mmol/L (137-145)
[2020-12-26 06:00] VITALS: BP 141/63; PULSE 77; RESP 16; TEMP 36.6; O2SAT 96
[2020-12-26] MEDS: ENOXAPARIN 120 MG/0.8 ML SYRINGE SUB-Q (06:38)
[2020-12-26] MEDS: ONDANSETRON INJ 4 MG/2 ML VIAL IV PUSH (06:47)
[2020-12-26 08:00] VITALS: PULSE 75
[2020-12-26 08:14] VITALS: O2SAT 98
[2020-12-26] MEDS: POTASSIUM CHLORIDE 20 MEQ PACKET (FOR LIQUID) 40 MEQ PO (09:05)
[2020-12-26] MEDS: LOSARTAN POTASSIUM 100 MG TABLET PO (09:06)
[2020-12-26] MEDS: PANTOPRAZOLE 40 MG TABLET PO (09:06)
[2020-12-26] MEDS: hydroCHLOROthiazide 25 MG TABLET PO (09:06)
--- NOTE | 2020-12-26 11:52 | PM.DS ---
DS: Admitting Diagnosis Admitting Diagnosis Admitting Diagnosis: PE with associated pulmonary infarct, CAP DS: Discharge Diagnosis Discharge Diagnosis (1) Community acquired pneumonia: Qualifiers: Laterality: left Lung location: lower lobe of lung Qualified Code(s): J18.9 - Pneumonia, unspecified organism Code(s): J18.9 - Pneumonia, unspecified organism Status: Acute Assessment and Plan: Likely LLL CAP based on consolidation on CTA chest. Appreciate Pulmonology input. Leukocytosis improved 12.9k. Received 2 days Rocephin and azithromycin; transitioned to PO Levaquin today per Pulmonology. Sputum sample gram stain shows rare gram negative bacilli and gram positive cocci. BCx growing gram positive cocci in clusters in 1 of 2 BCx; other BCx shows NGTD after 2 days; clinically this appears likely contaminate as patient is not septic appearing with stable VS and afebrile Will continue Levaquin through 12/30 to complete 7 days total of antibiotics Follow Sputum and blood cultures Monitor closely (2) Embolism, pulmonary with infarction: Code(s): I26.99 - Other pulmonary embolism without acute cor pulmonale Status: Ruled-out Assessment and Plan: Possible finding based on initial CTA chest results on 12/24 with brief episode of hemoptysis which has resolved; Repeat CTA chest 12/26 shows no evidence of PE or infarction. Venous Doppler b/l LE negative for DVT. Dr. Byers has been consulted and appreciate recommendations. PE felt to be less likely D/c therapeutic Lovenox Continue treatment for pneumonia above (3) Leukocytosis: Qualifiers: Leukocytosis type: unspecified Qualified Code(s): D72.829 - Elevated white blood cell count, unspecified Code(s): D72.829 - Elevated white blood cell count, unspecified Status: Acute Assessment and Plan: Likely secondary to CAP. Improving Monitor CBCD () Hemoptysis: Code(s): R04.2 - Hemoptysis Status: Resolved Assessment and Plan: Likely secondary to CAP. Resolved. (5) H/O: HTN (hypertension): Code(s): Z86.79 - Personal history of other diseases of the circulatory system Status: Chronic Assessment and Plan: BP 140s sys most recently Monitor blood pressure. Continue hydrochlorothiazide and losartan. (6) GERD (gastroesophageal reflux disease): Qualifiers: Esophagitis presence: esophagitis presence not specified Qualified Code(s): K21.9 - Gastro-esophageal reflux disease without esophagitis Code(s): K21.9 - Gastro-esophageal reflux disease without esophagitis Status: Chronic Assessment and Plan: Continue omeprazole (7) Positive blood culture: Code(s): R78.81 - Bacteremia Status: Acute Assessment and Plan: BCx growing gram positive cocci in clusters in 1 of 2 BCx; other BCx shows NGTD after 2 days; clinically this appears likely contaminate as patient is not septic appearing with stable VS and afebrile. Follow BCx Continue Levaquin for treatment of CAP DS: Summary Hospital Course Reason for hospitalization: CAP, suspected PE with pulmonary infarct (ruled out) Hospital Course: Date of arrival: 12/24/20 Date of discharge: 12/26/20 Patient is a pleasant 55-year-old female with known history of hypertension and GERD who presented to the hospital from her primary care doctor's office on 12/24 secondary to bloody sputum. While in the ED, CTA chest revealed possible subsegmental PE of LLL with associated pulmonary infarct and possible LLL pneumonia. Labs revealed leukocytosis of 14.3k. Patient afebrile with stable VS. Patient was placed on therapeutic 1mg/kg Loven
--- NOTE | 2020-12-26 12:47 | PM.PNPUL ---
Progress Note: A&P Assessment and Plan (1) Community acquired pneumonia: Qualifiers: Laterality: left Lung location: lower lobe of lung Qualified Code(s): J18.9 - Pneumonia, unspecified organism Code(s): J18.9 - Pneumonia, unspecified organism Status: Acute Assessment and Plan: I see no evidence of pulmonary embolism And I see that therapeutic anticoagulation has been discontinued. I will discontinue ceftriaxone and start her on Levaquin 750 mg p.o. daily for an additional 5 days. The patient can be discharged from pulmonary perspective. Subjective Date/time seen: 12/26/20 12:47 Interval history: as suspected her repeat CT of the chest showed no evidence of pulmonary embolism And only left lower lobe pneumonia. She is feeling much better today and her white count has decreased with antibiotic treatment And her vitals are stable Review of Systems Review of Systems: All systems reviewed & are unremarkable except as noted in HPI and below Exam Const: General: cooperative, healthy appearing, comfortable, no acute distress, well developed, alert, awake and Physically active Nutritional Appearance: obese Orientation/consciousness: oriented to person, oriented to place, oriented to time and patient oriented x3 Limitations: no limitations HENMT: Head: normocephalic and atraumatic Eyes: General: appearance normal, both eyes and all related structures Neck: Neck: trachea midline and supple Resp: Effort & Inspection: normal respiratory effort and able to speak in complete sentences Auscultation: crackles on the left in the lower lung [place] Cardio: Rate: regular rate Rhythm: regular rhythm Heart sounds: S1 normal heart sound present and S2 normal heart sound present GI: Inspection: normal to inspection Auscultation: normal bowel sounds Skin: General skin exam: normal color and no rashes or lesions noted Neuro: General: oriented to person, oriented to place, oriented to time and patient oriented x3 Cognition (Neuro): normal cognition Speech: normal speech Extrem: General: no clubbing, cyanosis or edema Psych: Appearance: grossly normal and well kempt Mental Status: mental status grossly normal Objective Data Vital Signs Vital Signs: Vital Signs - 24 hr 12/25/20 14:00 12/25/20 16:00 12/25/20 20:00 Temperature 36.5 C Pulse Rate 77 76 75 Respiratory Rate 20 Blood Pressure 122/51 L Pulse Oximetry 97 12/25/20 21:32 12/26/20 00:00 12/26/20 04:00 Temperature 36.0 C L Pulse Rate 79 74 81 Respiratory Rate 16 Blood Pressure 136/63 Pulse Oximetry 98 12/26/20 06:00 12/26/20 08:00 12/26/20 08:14 Temperature 36.6 C Pulse Rate 77 75 Respiratory Rate 16 Blood Pressure 141/63 H Pulse Oximetry 96 98 Intake/Output Intake/Output: Intake & Output 12/23/20 12/24/20 12/25/20 12/26/20 23:59 23:59 23:59 23:59 Intake Total 2620 1590 Output Total 1600 700 Balance 1020 890 Meds/Results Radiology Results: ITS Impressions Venous Doppler Study 12/25/20 09:03 IMPRESSION: 1. No deep venous thrombosis in either lower limb. Chest CTA 12/26/20 08:25 IMPRESSION: 1. No pulmonary embolus. 2. Stable left lower lobe pneumonia. 3. Mild left hilar and mediastinal lymphadenopathy, likely reactive. Labs Labs: Laboratory Results - last 24 hr 12/26/20 12/26/20 04:49 04:49 WBC 12.9 H RBC 4.00 L Hgb 11.9 L Hct 34.6 L MCV 86.5 MCH 29.8 MCHC 34.4 RDW 12.1 Plt Count 244 MPV 10.1 Immature Gran % (Auto) 0.9 H Neut % (Auto) 72.8 Lymph % (Auto) 17.2 L [place] % (Auto) 6.9 Eos % (Auto) 1.9 Baso % (Auto) 0.3 Lymph # (Auto) 2.21 [place] # (Auto) 0.9 H Eos # (Auto) 0.3 Baso # (Auto) 0.0 Abs Immat Gran (auto) 0.12 H Absolute Neuts (auto) 9.4 H Absolute Nucleated RBC 0.0 Nucleated RBC % 0.0 Sodium 137 Potassium 3.3 L Chloride 102 Carbon Dioxide 29 Anion Gap 6 L BUN 18
[2020-12-27 17:00] LABS: Pneumococcal Antigen Urine Not Detected (Not Detected)
--- NOTE | 2020-12-28 10:17 | PC.NURSE ---
Faxed and called Dr. Mora's office with positive blood cx results. They have received fax. Patient is following up with PCP today.
[2020-12-29 09:29] LABS: Legionella pneumophila Ag Ur Not Detected (Not Detected)
--- NOTE | 2021-01-05 09:12 | PC.NURSE ---
Sputum cx shows growth of normal [place]
== END 2020-12-26 12:35 | disposition home or self-care (01) ==
LOC: ANHED 19:19 → ANH2MED 19:46
PROVIDERS: Emergency Medicine; Internal Medicine Critical Care Medicine; Admitting Provider Family Medicine; Emergency Provider Emergency Medicine; PCP Family Medicine; Visit Provider Physician Assistant
DX: J18.9 Pneumonia, unspecified organism (principal); D72.829 Elevated white blood cell count, unspecified; R04.2 Hemoptysis; R78.81 Bacteremia; I10 Essential (primary) hypertension; K21.9 Gastro-esophageal reflux disease without esophagitis; Z86.16 Personal history of COVID-19
CPT/HCPCS: 36415; 71275; 80048; 80053; 83605; 83735; 84484; 85025; 85610; 87040; 87070; 87077; 87205; 87449; 87899; 93005; 93970; 96361; 96365; 96367; 96372; 96374; 96375; 99291; A9270; G0378; J0456; J0696; J1650; J2405; J7120; Q9967

== ENCOUNTER 2020-12-28 13:13 | Outpatient (CLI) | payer OTHER, SELFPAY ==
[2020-12-28 13:30] LABS: Basophils Absolute Auto 0.1 K/mm3 (0.0-0.1); Basophils Percent Auto 0.6 % (0.2-1.2); Eosinophils Absolute Auto 0.3 K/mm3 (0-0.3); Eosinophils Percent Auto 2.5 % (0-4.4); Hemoglobin 13.3 g/dL (12.0-15.0); Immature Granulocyte Absolute 0.27 K/mm3 (0.00-0.031); Immature Granulocyte Percent A 2.1 % (0-0.5); Lymphocytes Absolute Auto 2.01 K/mm3 (0.9-3.2); Lymphocytes Percent Auto 15.9 % (18.3-44.2); Mean Corpuscular HGB Conc 34.1 g/dl (32-36); Mean Corpuscular Hemoglobin 30.2 pg (26-34); Mean Corpuscular Volume 88.4 fl (80-100); Mean Platelet Volume 9.8 fl (7.4-10.4); Monocytes Absolute Auto 0.7 K/mm3 (0.1-0.6); Monocytes Percent Auto 5.3 % (2.6-8.5); Neutrophils Absolute Auto 9.3 K/mm3 (1.3-6.7); Neutrophils Percent Auto 73.6 % (45.5-73.1); Platelet Count Result 303 k/mm3 (150-375); Red Blood Count 4.41 M/mm3 (4.2-5.4); Red Cell Distribution Width 12.3 % (11.5-14.5); White Blood Count 12.6 K/mm3 (4.5-10.0)
== END 2020-12-28 13:14 | disposition home or self-care (01) ==
PROVIDERS: PCP Family Medicine; Visit Provider Family Medicine
DX: D72.829 Elevated white blood cell count, unspecified (principal)
CPT/HCPCS: 36415; 85025

== ENCOUNTER 2022-02-15 07:26 | Outpatient (CLI) | payer OTHER, SELFPAY ==
--- NOTE | ~2022-02-15 | MM_ITS ---
EXAMINATION: MM screening [facility] BI w larry HISTORY: Screening TECHNIQUE: Craniocaudal and mediolateral oblique 3-D tomosynthesis images were obtained and synthetic 2-D images were generated. CAD analysis was submitted and interpreted. COMPARISON: Comparison to multiple prior studies sequentially, with oldest reviewed study dated 10/2017. BREAST PARENCHYMAL COMPOSITION: There are scattered areas of fibroglandular density. FINDINGS: There is no evidence of suspicious mass, calcification, or architectural distortion to sugg est malignancy in either breast. There has been no suspicious interval change. IMPRESSION: 1. No mammographic evidence of malignancy. 2. Recommend routine screening mammography in one year. BI-RADS Category 1: Negative Reviewed, dictated and finalized at location A.
== END 2022-02-15 07:27 | disposition home or self-care (01) ==
PROVIDERS: PCP Family Medicine; Visit Provider Obstetrics & Gynecology
DX: Z12.31 Encounter for screening mammogram for malignant neoplasm of breast (principal)
CPT/HCPCS: 77063; 77067

== ENCOUNTER 2023-05-18 10:28 | Outpatient (CLI) | payer OTHER, SELFPAY ==
--- NOTE | ~2023-05-18 | MM_ITS ---
EXAMINATION: MM screening [facility] BI w larry HISTORY: Screening mammogram TECHNIQUE: Craniocaudal and mediolateral oblique 3-D tomosynthesis images were obtained and synthetic 2-D images were generated. CAD analysis was submitted and interpreted. COMPARISON: 02/15/2022, 01/21/2020 bilateral screening mammogram examinations BREAST PARENCHYMAL COMPOSITION: There are scattered areas of fibroglandular density. FINDINGS: There is no evidence of suspicious mass, calcification, or architectural distortion to sugg est malignancy in either breast. There has been no suspicious interval change. IMPRESSION: 1. No mammographic evidence of malignancy. 2. Recommend routine screening mammography in one year. BI-RADS Category 1: Negative Reviewed, dictated and finalized at location A.
--- NOTE | ~2023-05-18 | DEXA_ITS ---
Bone Density Report Name: LAURIE ALONSO Age: 57 Sex: Female Ethnicity: White Date of : 1965 Indication: postmenopausal; screening for osteoporosis; height loss; hysterectomy; Referring Provider: LORA ALEXANDER Study: Bone densitometry was performed. Exam Date: May 18, 2023 Accession number: [id number] Bone Density: Region BMD T-score Z-score Classification AP Spine(L1-L4) 1.236 1.7 3.1 Normal Femoral Neck (Left) 0.891 0.4 1.6 Normal Total Hip (Left) 1.096 1.3 2.2 Normal Femoral Neck (Right) 0.884 0.3 1.6 Normal Total Hip (Right) 1.069 1.0 2.0 Normal Total Hip Mean 1.083 1.2 2.1 Normal World Health Organization criteria for BMD impression classify patients as: Normal (T-score at or above -1.0), Osteopenia (T-score between -1.0 and -2.5), or Osteoporosis (T-score at or below -2.5). 10-year Fracture Risk: FRAX not reported because: All T-scores for Spine Total, Hip Total, Femoral Neck at or above -1.0 Previous Exams: Region Exam Age BMD T-score BMD Change BMD Change Date g/cm2 vs Baseline vs Previous AP Spine (L1-L4) 05/18/2023 57 1.236 1.7 0.027 (2.2%)# 0.051 (4.3%)* 01/21/2020 54 1.185 1.3 -0.024 (-2.0%) -0.024 (-2.0%) 09/24/2015 49 1.209 1.5 Total Hip(Left) 05/18/2023 57 1.096 1.3 0.037 (3.5%)# 0.024 (2.3%) 01/21/2020 54 1.072 1.1 0.013 (1.2%)# 0.013 (1.2%)# 09/24/2015 49 1.059 1.0 Total Hip(Right) 05/18/2023 57 1.069 1.0 0.001 (0.1%)# 0.021 (2.0%) 01/21/2020 54 1.048 0.9 -0.020 (-1.9%) -0.020 (-1.9%) 09/24/2015 49 1.068 1.0 *Denotes significance at 95% confidence level, LSC for AP Spine = 0.022 g/cm2, LSC for Total Hip = 0.027 g/cm2 # Denotes dissimilar scan types or analysis methods Clinical Information Provided by Patient: Has the following medical conditions: Hysterectomy Patient maximum height was 68 Menopause Age: 46 No regular weight bearing exercise Drinks caffeinated beverages Onset of menses at age 11 Number of children 2 Impression: The patient has normal bone mass. No significant bone loss was observed. Discussion: BONE DENSITY IS ABOVE THE MINIMUM DESIRABLE LEVEL AT ALL SKELETAL SITES TESTED. This patient?s bone mineral density is above the minimum desirable level (T-score -1.0 or better) at all sites measured. The patient should follow a healthful lifestyle (good nutrition with adequate calcium and vitamin D, and appro
== END 2023-05-18 10:29 | disposition home or self-care (01) ==
PROVIDERS: PCP Family Medicine; Visit Provider Obstetrics & Gynecology
DX: Z12.31 Encounter for screening mammogram for malignant neoplasm of breast (principal); Z78.0 Asymptomatic menopausal state
CPT/HCPCS: 77063; 77067; 77080

== ENCOUNTER 2023-06-16 12:59 | Outpatient (CLI) | payer OTHER, SELFPAY ==
[2023-06-16 13:59] LABS: Anion Gap 6 mmol/L (8-16); Blood Urea Nitrogen 19 mg/dL (7-17); Calcium 8.9 mg/dL (8.4-10.2); Carbon Dioxide 28 mmol/L (22-30); Chloride 107 mmol/L (98-107); Estimated Glomerular Filt Rate > 60; Glucose 91 mg/dL (65-110); Potassium 3.6 mmol/L (3.4-5.0); Sodium 141 mmol/L (137-145)
== END 2023-06-16 13:00 | disposition home or self-care (01) ==
LOC: ANHLAB 13:01
PROVIDERS: PCP Family Medicine; Visit Provider Anesthesiology
DX: Z79.899 Other long term (current) drug therapy (principal)
CPT/HCPCS: 36415; 80048

== ENCOUNTER 2023-06-22 00:46 | Day surgery (SDC) | payer OTHER, SELFPAY ==
[2023-06-12 16:19] VITALS: BMI 41.8
--- NOTE | 2023-06-12 16:23 | PC.NURSE ---
Report to the Outpatient Waiting Room, entrance under the green pavilion located off [facility], at time _0600_ on date _[id number]_. Planned Procedure Time: _0730_. Time changes happen often and if your time is changed the preop area will call you the afternoon before. - You and your visitor will be asked to self-screen and do not enter if you have any COVID symptoms. - A mask is optional within the hospital at this time. Patients may have clear liquids (water, carbonated beverages, clear teas, apple juice) until 3 hours prior to surgery with a maximum of 20 ounces. - No food from midnight until time of surgery Take the following medications with a SIP of water the morning of surgery: ___None DO NOT STOP ANY OF YOUR OTHER PRESCRIPTION MEDICATIONS PRIOR TO SURGERY ?EXCEPT THE FOLLOWING Medications to discontinue per physician None Date to take last dose Please no make-up, nail turkmen, hairspray, perfume, deodorant, or body powder the day of surgery. No jewelry (including any body piercings) or valuables the day of surgery, leave them at home. Please take a shower or bath the night before, or the morning of, surgery with an antibacterial soap. Wear comfortable, loose fitting clothing. - Jewelry must be removed prior to entering the operating room. Rings and piercings that are not removed may be cut off. - The hospital will not accept responsibility for valuables. - Please leave all valuables, including medications, at home the day of surgery. If you are going home after surgery, a licensed car driver must drive you home. - NO public transportation without another adult if you receive anesthesia. - We recommend that an adult stay with you for 24 hours following discharge. - We also recommend that you do not drive, make important decision, drink alcoholic beverages, or take any drugs that were not prescribed by your health care provider for at least 24 hours after your discharge time. Follow any additional instructions given to you from your surgeon. If you or anyone in your household have experienced Covid symptoms in the past week, please notify your surgeon or the nurse liaison at the phone number below for possible testing. Telephone instructions given to _Patient__and asked if any additional questions and then verbalized understanding. Patient advised to call surgeon office or pre surgery nurse liaison [phone] if any additional questions.
[2023-06-22] VITALS (8 sets, daily range): BP systolic 104–133; BP diastolic 56–78; PULSE 58–73; RESP 12–18; TEMP 36.2–36.3; O2SAT 95–100; BMI 44.6
[2023-06-22] MEDS: LACTATED RINGERS 1,000 ML 30 ML IV CONT (06:30)
--- NOTE | 2023-06-22 07:11 | WPDANESEPPF ---
Anes - Initial Pre Proc Eval Procedure: Operation Date: 06/22/23 07:30 Proposed Procedures p Right Open Carpal Tunnel Release, Right Ulnar Neuroplasty at Elbow - Kolby Aldridge MD Date/Time: 06/22/23 07:11 Surgeon: Kolby Aldridge MD Pre Op Diagnosis: right carpal and cubital tunnel syndrome Patient Data Age: 57 Gender: F Height: 1.73 m Weight: 125 kg Allergies Allergy/AdvReac Type Severity Reaction Status Date / Time No Known Allergies Allergy Verified 06/12/23 16:19 Home Medications Medication Instructions Recorded Confirmed Type hydrochlorothiazide 25 mg tablet See Rx Instructions .Route 09/17/22 06/12/23 Rx .COMPLEX #90 tabs losartan 100 mg tablet See Rx Instructions .Route 09/17/22 06/12/23 Rx .COMPLEX #90 tabs omeprazole 40 mg capsule,delayed 40 mg PO DAILY #90 caps 04/26/23 06/12/23 Rx release Patient hx anesthesia problems: post op nausea/vomiting Family hx anesthesia problems: none Results Review: All pre-operative results and documents have been reviewed as part of the pre-operative evaluation. [facility] Past Medical History Medical History BMI 40.0-44.9, adult Body mass index [BMI] 34.0-34.9, adult (04/25/19) Body mass index [BMI] 45.0-49.9, adult (04/19/18) Body mass index [BMI]40.0-44.9, adult (03/09/17) Encounter for gynecological examination (general) (routine) without abnormal findings Encounter for other specified surgical aftercare Encounter for screening for malignant neoplasm of colon (03/09/17) GERD (gastroesophageal reflux disease) H/O: HTN (hypertension) Postmenopausal Recurrent ventral incisional hernia Vaginal dryness, menopausal Surgical History Surgical History H/O: hysterectomy History of dilation and curettage History of endometrial ablation History of total hysterectomy Previous section x 2 Family History Family History Father Hypertension Parkinson's disease Hyperlipidemia Mother Hypertension Family history of malignant neoplasm of kidney Sibling Hypertension Other Family history of malignant neoplasm Social History Social History Smoking status: Never smoker Second hand tobacco smoke exposure: No Alcohol intake: never Substance use: never Substance use type: does not use Lack of Transportation: No Lack of Food: Never True Current Housing: I Have Housing Concerned About Future Housing: No Difficulty Paying Gas/Electric Bills: No Difficulty Paying for Meds: No Education: Associate Degree Living arrangements: with family Occupation/Education: occupation Additional occupation/education comments: RN Gender identity (if verbalized by the patient): Female Sexual Orientation (if Verbalized by the Patient): Straight or Heterosexual Spiritual care concerns: No Anes - Eval Final PreProcedure Day of Procedure 06/22/23 07:11 Patient weight: morbidly obese Heart: regular rate and rhythm Lungs: clear to auscultation Airway: Mallampati scale class III Neurological: alert and oriented Last oral intake: >/= 8 hours ASA classification: III Emergent: no Anesthetic plan: proceed Anesthesia type and monitoring: general GIVS and standard monitoring Results Review: All pre-operative results and documents have been reviewed as part of the pre-operative evaluation. Informed Consent: The patient's anesthetic plan and its attendant risks and benefits were discussed with the patient/family/POA. Questions were solicited and answers provided to the satisfaction of the patient/family/POA.
--- NOTE | 2023-06-22 07:16 | WPDHPUPDATE1 ---
History and Physical Update Update Date/Time: 06/22/23 07:16 History and Physical has been reviewed, including an updated exam of the patient. There are NO changes in the patient's condition. Risks, benefits, and alternatives have been discussed and questions answered. Patient agrees to proceed with procedure.
[2023-06-22] MEDS: LIDO 1%/EPINEPHRINE 1:100,000 50 ML VIAL 10 ML INFILTRATE (08:08)
--- NOTE | 2023-06-22 09:05 | P.OP_ITS ---
Procedure Note - Detailed Date of Procedure 06/22/23 Pre-op Diagnosis right carpal and cubital tunnel syndrome Post-op Diagnosis Same Procedure Performed Right open carpal tunnel release and right ulnar neuroplasty at the elbow Surgeon Kolby Aldridge MD Gear Shaper Set Up Operator Vesna Mercedes Anesthesia MAC Description of Procedure The 2 sites were marked on the patient with her consent in the holding area. She was then taken to the operating room where she was placed supine on the operating table. He was given IV sedation with an LMA. The right upper extremity was prepped and draped in usual fashion. Tourniquet was applied high on the arm. The sites were marked for incision and locally infiltrated with 1% lidocaine epinephrine. The extremity was exsanguinated and the tourniquet inflated to 250 mmHg. Surgery began on the hand where the incision was made as marked. Blunt dissection through the subcutaneous tissue revealed the palmar aponeurosis. This and the transverse retinaculum were incised with a 15. Blade. Under 3 point retraction the retinaculum was divided distally and proximally for complete release. There was no unusual anatomy noted. The wound was closed with interrupted 5 0 nylon suture. The elbow was flexed and supported on folded towels. The surgical site was identified and incised with a 15. Blade. Blunt dissection through the subcutaneous tissue revealed the interspace between the medial epicondyle and the olecranon. The nerve was identified just proximal to the medial epicondyle. Was carefully exposed and overlying fascial structures were divided proximally. There was no apparent role of the intermuscular septum compressing the nerve. Dissection was then followed distally revealing Lomeli ligament and this was divided as well. The nerve did not subluxate. The fascia over the flexor carpi ulnaris was incised there is there that the site of most compression may have been just at the distal edge of the Lomeli ligament and the proximal muscle fascia. The tourniquet was released and a few bleeding points were electrocoagulated. The wound was closed with the use of 3-0 intradermal and superficial fascia Monocryl sutures that are cross cooley gilbert. The skin was then closed with intradermal running 3-0 Dorothy suture. The usual bandages were applied. The patient was awakened and discharged from the operating room stable condition. Sin requested that no prescription for hydrocodone be sent. She does have instructions in wound care and follow-up. Estimated Blood Loss -5.0 Tourniquet Time 24 Drains No Packing No Pathology None sent Complications No immediate complications Condition Stable Disposition PACU
[2023-06-22] MEDS: ONDANSETRON INJ 4 MG/2 ML VIAL IV PUSH (09:23)
== END 2023-06-22 10:38 | disposition home or self-care (01) ==
PROVIDERS: PCP Family Medicine; Visit Provider Plastic Surgery
PROC: (CPT 64721; principal; 2023-06-22 07:30)
DX: G56.01 Carpal tunnel syndrome, right upper limb (principal); G56.21 Lesion of ulnar nerve, right upper limb; I10 Essential (primary) hypertension; K21.9 Gastro-esophageal reflux disease without esophagitis; E66.01 Morbid (severe) obesity due to excess calories; Z68.41 Body mass index [BMI] 40.0-44.9, adult
CPT/HCPCS: 64721; 64718; A9270; J1100; J2250; J2405; J2704; J3010; J7120

== ENCOUNTER 2023-09-26 01:23 | Emergency (ER) | payer OTHER, SELFPAY ==
--- NOTE | ~2023-09-26 | XR_ITS ---
Clinical Indication: Chest pain PA and lateral views of the chest: Comparison: 12/23/2020 Findings: The lungs are clear, without evidence of focal consolidation or pleural effusion. Cardiome diastinal silhouette is within normal limits. Bones and soft tissues are unremarkable. Impression: Normal chest. Reviewed, dictated and finalized at [facility]. ING INSPECTOR Impression: Normal chest.
--- NOTE | 2023-09-26 01:24 | ECG_ITS ---
Measurements Intervals [place] Rate: 83 P: 28 MI: 134 QRS: 20 QRSD: 90 T: 18 QT: 392 QTc: 461 Interpretive Statements SINUS RHYTHM NONSPECIFIC ST & T-WAVE ABNORMALITY- ANTERIOR LEADS BASELINE ARTIFACT- I, II, AVR BORDERLINE ECG COMPARED TO ECG 12/24/2020 18:54:26 NO SIGNIFICANT CHANGES Electronically Signed On 09-26-2023 6:49:11 DIGITAL STRATEGIST SENIOR MANAGER by Beau Cohn D.O.
[2023-09-26 01:33] VITALS: BP 178/93; PULSE 81; RESP 15; TEMP 36.7; O2SAT 99
[2023-09-26] MEDS: ASPIRIN 81 MG CHEWABLE TABLET 324 MG PO (01:42)
[2023-09-26 01:45] VITALS: PULSE 81
[2023-09-26] MEDS: NITROGLYCERIN SL 0.4 MG TABLET SUBLINGUAL (01:48)
[2023-09-26] MEDS: BELLADONNA ALK/PHENOB ELIX 10 ML, MAG HYDROX/ALUMINUM HYD/SIMETH 30 ML, LIDOCAINE HCL 2... PO (01:48)
[2023-09-26 01:55] LABS: Basophils Absolute Auto 0.1 K/mm3 (0.0-0.1); Basophils Percent Auto 0.5 % (0.2-1.2); Eosinophils Absolute Auto 0.3 K/mm3 (0-0.3); Hematocrit 42.5 % (37.0-47.0); Immature Granulocyte Absolute 0.04 K/mm3 (0.00-0.031); Immature Granulocyte Percent A 0.4 % (0-0.5); Lymphocytes Absolute Auto 2.89 K/mm3 (0.9-3.2); Lymphocytes Percent Auto 27.2 % (18.3-44.2); Mean Corpuscular HGB Conc 32.9 g/dl (32-36); Mean Corpuscular Hemoglobin 30.5 pg (26-34); Mean Corpuscular Volume 92.6 fl (80-100); Mean Platelet Volume 11.1 fl (7.4-10.4); Monocytes Absolute Auto 0.7 K/mm3 (0.1-0.6); Neutrophils Absolute Auto 6.6 K/mm3 (1.3-6.7); Neutrophils Percent Auto 61.9 % (45.5-73.1); Platelet Count Result 213 k/mm3 (150-375); Red Blood Count 4.59 M/mm3 (4.2-5.4); White Blood Count 10.6 K/mm3 (4.5-10.0)
[2023-09-26 02:05] LABS: Alanine Aminotransferase 41 U/L (6-35); Albumin Level 4.4 g/dL (3.5-5.1); Alkaline Phosphatase 67 U/L (38-126); Anion Gap 8 mmol/L (8-16); Aspartate Amino Transferase 42 U/L (14-36); Bilirubin,Total 0.5 mg/dL (0.2-1.3); Blood Urea Nitrogen 21 mg/dL (7-17); Calcium 9.5 mg/dL (8.4-10.2); Carbon Dioxide 28 mmol/L (22-30); Chloride 104 mmol/L (98-107); Estimated CRCL calculation 111 ml/min; Estimated Glomerular Filt Rate > 60; Glucose 97 mg/dL (65-110); Lipase 53 U/L (23-300); Potassium 3.6 mmol/L (3.4-5.0); Sodium 140 mmol/L (137-145)
[2023-09-26 02:12] LABS: Prothrombin Time 13.4 Seconds (11.1-14.7)
[2023-09-26 02:13] LABS: Partial Thromboplastin Time 27.8 SECONDS (22.3-36.8)
[2023-09-26 02:17] LABS: Troponin I < 0.012 ng/mL (0.000-0.034)
[2023-09-26 02:22] VITALS: BP 134/84; PULSE 73; RESP 15; O2SAT 100
--- NOTE | 2023-09-26 02:39 | ED.GENADULT ---
HPI - General Adult General Chief complaint: Chest Pain Stated complaint: chest pain Time Seen by Provider: 09/26/23 01:33 History of Present Illness HPI narrative: Patient is a 57-year-old female who presents emergency department with chief complaint of epigastric and midsternal chest discomfort radiating to her shoulder blades patient states it feels like a fullness states started around 8:00 p.m. this evening has been increasing over the last 3 hours patient reports she does have prior history of reflux but the symptoms they are worse than normal patient states the pain is more of an ache and reports that she had a little bit of nausea with this the patient denies vomiting denies diarrhea reports that she still has her gallbladder and reports that she has never had a cardiac event past. Related Data Allergies Allergy/AdvReac Type Severity Reaction Status Date / Time No Known Allergies Allergy Verified 06/22/23 07:17 Review of Systems Review of Systems: A 10 system review of systems was completed on the patient and is negative except for what is stated in the HPI. Nursing and ancillary documentation was reviewed. [facility] Past Medical History Medical History BMI 40.0-44.9, adult Body mass index [BMI] 34.0-34.9, adult (04/25/19) Body mass index [BMI] 45.0-49.9, adult (04/19/18) Body mass index [BMI]40.0-44.9, adult (03/09/17) Encounter for gynecological examination (general) (routine) without abnormal findings Encounter for other specified surgical aftercare Encounter for screening for malignant neoplasm of colon (03/09/17) GERD (gastroesophageal reflux disease) H/O: HTN (hypertension) Postmenopausal Recurrent ventral incisional hernia Vaginal dryness, menopausal Surgical History Surgical History H/O: hysterectomy History of dilation and curettage History of endometrial ablation History of total hysterectomy Previous section x 2 Family History Family History Father Hypertension Parkinson's disease Hyperlipidemia Mother Hypertension Family history of malignant neoplasm of kidney Sibling Hypertension Other Family history of malignant neoplasm Social History Social History Smoking status: Never smoker Second hand tobacco smoke exposure: No Alcohol intake: never Substance use: never Substance use type: does not use Lack of Transportation: No Lack of Food: Never True Current Housing: I Have Housing Concerned About Future Housing: No Difficulty Paying Gas/Electric Bills: No Difficulty Paying for Meds: No Education: Associate Degree Living arrangements: with family Occupation/Education: occupation Additional occupation/education comments: RN Gender identity (if verbalized by the patient): Female Sexual Orientation (if Verbalized by the Patient): Straight or Heterosexual Spiritual care concerns: No Exam Narrative: GENERAL: Well-appearing, well-nourished, and in no acute distress. HEAD: Normocephalic, atraumatic. EYES: PERRLA and EOMI. ENT: Nares clear, no rhinorrhea or epistaxis. Mucous membranes moist. NECK: Supple. CHEST: Clear to auscultation. No respiratory distress. HEART: Regular rate and rhythm. No murmur heard. Normal peripheral pulses. ABDOMEN: Soft, nontender, nondistended, normal active bowel sounds. EXTREMITIES: Normal range of motion. No edema. SKIN: Warm, dry, no rash. NEURO: No focal deficits. Alert and oriented x3. PSYCH: Normal mood and affect. Course Vital Signs Vital signs: Vital Signs Temperature 36.7 C 09/26/23 01:33 Pulse Rate 81 09/26/23 01:33 Respiratory Rate 15 09/26/23 01:33 Blood Pressure 178/93 H 09/26/23 01:33 Pulse Oximetry 99 09/26/23 01:33 Oxy
[2023-09-26 03:01] VITALS: BP 128/64; PULSE 78; RESP 15; O2SAT 100
== END 2023-09-26 03:04 | disposition home or self-care (01) ==
PROVIDERS: Emergency Provider Emergency Medicine; PCP Family Medicine
DX: R07.2 Precordial pain (principal); R07.89 Other chest pain; I10 Essential (primary) hypertension; K21.9 Gastro-esophageal reflux disease without esophagitis; Z90.710 Acquired absence of both cervix and uterus
CPT/HCPCS: 36415; 71046; 80053; 83690; 84484; 85025; 85610; 85730; 93005; 99284; A9270

== ENCOUNTER 2023-10-25 00:42 | Day surgery (SDC) | payer OTHER, SELFPAY ==
[2023-10-18 14:33] VITALS: BMI 43.5
--- NOTE | 2023-10-18 14:39 | PC.NURSE ---
Report to the Outpatient Waiting Room, entrance under the green pavilion located off [facility], at time _0600__ on date __10/25/23 _. Planned Procedure Time: _0730 _. Time changes happen often and if your time is changed the preop area will call you the afternoon before. - You and your visitor will be asked to self-screen and do not enter if you have any COVID symptoms. - A mask is optional within the hospital at this time. Patients may have clear liquids (water, carbonated beverages, clear teas, apple juice) until 3 hours prior to surgery with a maximum of 20 ounces. - No food from midnight until time of surgery - Infants may have breast milk until 4 hours before surgery, formula 6 hours prior to surgery. - Children will be allowed to drink immediately following surgery. If applicable, please bring a bottle or sippy cup to assist with drinking. Juice, water, soda, and popsicles are readily available. For infants on formula, please bring formula the day of surgery. Pacifiers are allowed. Take the following medications with a SIP of water the morning of surgery: __NONE DO NOT STOP ANY OF YOUR OTHER PRESCRIPTION MEDICATIONS PRIOR TO SURGERY ?EXCEPT THE FOLLOWING Medications to discontinue per physician NONE Date to take last dose Please no make-up, nail hungarian, hairspray, perfume, deodorant, or body powder the day of surgery. No jewelry (including any body piercings) or valuables the day of surgery, leave them at home. Please take a shower or bath the night before, or the morning of, surgery with an antibacterial soap. Wear comfortable, loose fitting clothing. Children are encouraged to wear pajamas. - Jewelry must be removed prior to entering the operating room. Rings and piercings that are not removed may be cut off. - The hospital will not accept responsibility for valuables. - Please leave all valuables, including medications, at home the day of surgery. If you are going home after surgery, a licensed bulk truck driver must drive you home. - NO public transportation without another adult if you receive anesthesia. - We recommend that an adult stay with you for 24 hours following discharge. - We also recommend that you do not drive, make important decision, drink alcoholic beverages, or take any drugs that were not prescribed by your health care provider for at least 24 hours after your discharge time. For Pediatric surgeries, we recommend two adults accompany the child home. Follow any additional instructions given to you from your surgeon. If you or anyone in your household have experienced Covid symptoms in the past week, please notify your surgeon or the nurse liaison at the phone number below for possible testing. Telephone instructions given to ANTONYand asked if any additional questions and then verbalized understanding. Patient advised to call surgeon office or pre surgery nurse liaison [phone] if any additional questions.
--- NOTE | 2023-10-25 06:35 | WPDANESEPPF ---
Anes - Initial Pre Proc Eval Procedure: Operation Date: 10/25/23 07:30 Proposed Procedures p Left Open Carpal Tunnel Release, - Kolby Aldridge MD s Left Ulnar Neuroplasty at Elbow - Kolby Aldridge MD Date/Time: 10/25/23 06:35 Surgeon: Kolby Aldridge MD Pre Op Diagnosis: Lt Carpal & Cubital Tunnel Syndrome Patient Data Age: 57 Gender: F Height: 1.73 m Weight: 139 kg Allergies Allergy/AdvReac Type Severity Reaction Status Date / Time No Known Allergies Allergy Verified 10/25/23 06:16 Home Medications Medication Instructions Recorded Confirmed Type hydrochlorothiazide 25 mg tablet See Rx Instructions .Route 09/17/22 10/25/23 Rx .COMPLEX #90 tabs losartan 100 mg tablet See Rx Instructions .Route 09/17/22 10/25/23 Rx .COMPLEX #90 tabs omeprazole 40 mg capsule,delayed 40 mg PO DAILY #90 caps 04/26/23 10/25/23 Rx release Patient hx anesthesia problems: none Family hx anesthesia problems: none Results Review: All pre-operative results and documents have been reviewed as part of the pre-operative evaluation. [facility] Past Medical History Medical History BMI 40.0-44.9, adult Body mass index [BMI] 34.0-34.9, adult (04/25/19) Body mass index [BMI] 45.0-49.9, adult (04/19/18) Body mass index [BMI]40.0-44.9, adult (03/09/17) Encounter for gynecological examination (general) (routine) without abnormal findings Encounter for other specified surgical aftercare Encounter for screening for malignant neoplasm of colon (03/09/17) GERD (gastroesophageal reflux disease) H/O: HTN (hypertension) Postmenopausal Recurrent ventral incisional hernia Vaginal dryness, menopausal Surgical History Surgical History H/O: hysterectomy History of dilation and curettage History of endometrial ablation History of total hysterectomy Previous section x 2 Family History Family History Father Hypertension Parkinson's disease Hyperlipidemia Mother Hypertension Family history of malignant neoplasm of kidney Sibling Hypertension Other Family history of malignant neoplasm Social History Social History Smoking status: Never smoker Second hand tobacco smoke exposure: No Alcohol intake: never Substance use: never Substance use type: does not use Lack of Transportation: No Lack of Food: Never True Current Housing: I Have Housing Concerned About Future Housing: No Difficulty Paying Gas/Electric Bills: No Difficulty Paying for Meds: No Education: Associate Degree Living arrangements: with family Occupation/Education: occupation Additional occupation/education comments: RN Gender identity (if verbalized by the patient): Female Sexual Orientation (if Verbalized by the Patient): Straight or Heterosexual Spiritual care concerns: No Anes - Eval Final PreProcedure Day of Procedure 10/25/23 06:35 Patient weight: morbidly obese Heart: regular rate and rhythm Lungs: clear to auscultation Airway: Mallampati scale class II Neurological: alert and oriented Last oral intake: >/= 8 hours ASA classification: III Emergent: no Anesthetic plan: proceed Anesthesia type and monitoring: general GIVS and LMA and standard monitoring Results Review: All pre-operative results and documents have been reviewed as part of the pre-operative evaluation. Informed Consent: The patient's anesthetic plan and its attendant risks and benefits were discussed with the patient/family/POA. Questions were solicited and answers provided to the satisfaction of the patient/family/POA.
[2023-10-25 06:40] VITALS: BP 143/86; PULSE 69; RESP 20; TEMP 36.1; O2SAT 98
--- NOTE | 2023-10-25 07:10 | WPDHPUPDATE1 ---
History and Physical Update Update Date/Time: 10/25/23 07:10 History and Physical has been reviewed, including an updated exam of the patient. There are NO changes in the patient's condition. Risks, benefits, and alternatives have been discussed and questions answered. Patient agrees to proceed with procedure.
[2023-10-25] MEDS: LACTATED RINGERS 1,000 ML 30 ML IV CONT (07:16)
[2023-10-25] MEDS: LIDO 1%/EPINEPHRINE 1:100,000 50 ML VIAL 10 ML INFILTRATE (07:42)
[2023-10-25 08:27] VITALS: BP 129/61; PULSE 59; RESP 16; O2SAT 96
--- NOTE | 2023-10-25 08:28 | W.PM.PROC2 ---
Procedure Note - Detailed Date of Procedure 10/25/23 Pre-op Diagnosis Lt Carpal & Cubital Tunnel Syndrome Post-op Diagnosis Same Procedure Performed Left open carpal tunnel release and left ulnar neuroplasty at the elbow Surgeon Kolby Aldridge MD Anesthesia MAC Description of Procedure The left carpal tunnel and cubital tunnel were marked on the patient with her consent in the holding area. She was then taken to the operating room and placed supine on the operating table. She was given IV sedation. The left upper extremity was prepped and draped in usual fashion. The sites were remarked for incision lines and each locally infiltrated with 1% lidocaine with epinephrine. The extremity was exsanguinated the tourniquet inflated to 250 mmHg. Surgery was begun on the palm where the incision was made as marked. Blunt dissection through the subcutaneous tissue revealed the palmar aponeurosis. This and the transverse retinaculum were incised with a 15. Blade opening the canal. Under 3 point retraction of the ligament was divided distally and proximally for complete release. No unusual anatomy was noted. Skin wound was closed with interrupted 5 0 nylon suture. There was no bleeding at that time. Attention was turned to the left elbow which was flexed and supported on folded towels. The incision was made as marked. Dissection through the subcutaneous tissue revealed the ulnar nerve. This was noted to lie normal position. There was no significant compression proximal to the medial epicondyle. Distally Lomeli's ligament was divided and again there seemed to be very little compression distal to that. A small finger could be passed along the nerve in either direction. The tourniquet was released bleeding points were electrocoagulated and the wound was closed with intradermal 3-0 Monocryl suture at cross cooley gilbert and a running intradermal 3-0 Monocryl to close skin. The usual bandages were applied. The patient chooses to have no prescription for narcotics. She is discharge instructions wound care and follow-up Estimated Blood Loss 1 IV Fluids 21 Drains No Packing No Pathology None sent Complications No immediate complications Condition Stable Disposition Same day
[2023-10-25 08:55] VITALS: BP 132/70; PULSE 62; RESP 16
[2023-10-25 09:25] VITALS: BP 146/68; PULSE 70; RESP 20
== END 2023-10-25 09:38 | disposition home or self-care (01) ==
PROVIDERS: PCP Family Medicine; Visit Provider Plastic Surgery
PROC: (CPT 64721; principal; 2023-10-25 07:30)
PROC: (CPT 64721; 2023-10-25 07:30)
DX: G56.02 Carpal tunnel syndrome, left upper limb (principal); G56.22 Lesion of ulnar nerve, left upper limb
CPT/HCPCS: 64721; 64718; A9270; J2250; J2405; J2704; J3010; J7120

== ENCOUNTER 2023-12-04 10:32 | Outpatient (CLI) | payer OTHER, SELFPAY ==
[2023-12-04 11:46] LABS: Basophils Absolute Auto 0.1 K/mm3 (0.0-0.1); Basophils Percent Auto 0.9 % (0.2-1.2); Eosinophils Absolute Auto 0.2 K/mm3 (0-0.3); Eosinophils Percent Auto 2.5 % (0-4.4); Hematocrit 41.4 % (37.0-47.0); Hemoglobin 13.9 g/dL (12.0-15.0); Immature Granulocyte Absolute 0.02 K/mm3 (0.00-0.031); Immature Granulocyte Percent A 0.3 % (0-0.5); Lymphocytes Absolute Auto 2.75 K/mm3 (0.9-3.2); Mean Corpuscular HGB Conc 33.6 g/dl (32-36); Mean Corpuscular Hemoglobin 30.5 pg (26-34); Mean Corpuscular Volume 90.8 fl (80-100); Mean Platelet Volume 10.9 fl (7.4-10.4); Monocytes Absolute Auto 0.4 K/mm3 (0.1-0.6); Monocytes Percent Auto 5.2 % (2.6-8.5); Neutrophils Absolute Auto 4.4 K/mm3 (1.3-6.7); Neutrophils Percent Auto 56.1 % (45.5-73.1); Platelet Count Result 204 k/mm3 (150-375); Red Blood Count 4.56 M/mm3 (4.2-5.4); Red Cell Distribution Width 13.1 % (11.5-14.5); White Blood Count 7.9 K/mm3 (4.5-10.0)
[2023-12-04 11:53] LABS: Alanine Aminotransferase 38 U/L (6-35); Albumin Level 4.2 g/dL (3.5-5.1); Alkaline Phosphatase 62 U/L (38-126); Anion Gap 8 mmol/L (4-12); Aspartate Amino Transferase 40 U/L (14-36); Bilirubin,Total 0.8 mg/dL (0.2-1.3); Blood Urea Nitrogen 22 mg/dL (7-17); Calcium 9.4 mg/dL (8.4-10.2); Carbon Dioxide 27 mmol/L (22-30); Chloride 104 mmol/L (98-107); Cholesterol 132 mg/dL (0-200); Estimated Glomerular Filt Rate > 60; Glucose 101 mg/dL (65-110); HDL Direct 32 mg/dL; Potassium 3.4 mmol/L (3.4-5.0); Sodium 139 mmol/L (137-145); Triglycerides 140 mg/dL (<150)
[2023-12-04 12:04] LABS: LDL Cholesterol Direct 81 mg/dL
[2023-12-04 12:18] LABS: Free T4 Free Thyroxine 1.24 ng/mL (0.78-2.19)
== END 2023-12-04 10:33 | disposition home or self-care (01) ==
PROVIDERS: PCP Family Medicine; Visit Provider Physician Assistant Medical
DX: D72.829 Elevated white blood cell count, unspecified (principal); R74.8 Abnormal levels of other serum enzymes; Z86.79 Personal history of other diseases of the circulatory system; E78.5 Hyperlipidemia, unspecified; E04.9 Nontoxic goiter, unspecified; R22.1 Localized swelling, mass and lump, neck
CPT/HCPCS: 36415; 80053; 80061; 84439; 84443; 85025

== ENCOUNTER 2023-12-19 16:16 | Outpatient (CLI) | payer OTHER, SELFPAY ==
--- NOTE | ~2023-12-19 | US_ITS ---
EXAMINATION: US thyroid DATE: 12/19/2023 16:36 INDICATION: Goiter. Neck swelling. TECHNIQUE: Multiple ultrasound images of the thyroid were obtained. COMPARISON: None. FINDINGS: The right thyroid lobe measures 6.1 x 1.3 x 1.8 cm. The left thyroid lobe measures 5.1 x 1.4 x 1.6 c m. There is normal echotexture and echogenicity throughout the thyroid gland. No discrete nodules id entified. Normal vascular flow is present. IMPRESSION: 1. Normal thyroid. Reviewed, dictated and finalized at location E. IMPRESSION: 1. Normal thyroid.
--- NOTE | ~2023-12-19 | US_ITS ---
EXAMINATION: US soft tissue head and neck DATE: 12/19/2023 16:36 INDICATION: Localized swelling, mass and lump, neck. TECHNIQUE: Multiple grayscale and Doppler ultrasound images of the head and neck were obtained. COMPARISON: None FINDINGS: There is no abnormal mass or lymphadenopathy in right neck in the patient's area of concern . IMPRESSION: 1. No abnormal mass or lymphadenopathy in right neck in the patient's area of concern. Reviewed, dictated and finalized at location E. IMPRESSION: 1. No abnormal mass or lymphadenopathy in right neck in the patient's area of c oncern.
== END 2023-12-19 16:17 | disposition home or self-care (01) ==
PROVIDERS: PCP Family Medicine; Visit Provider Physician Assistant Medical
DX: R22.1 Localized swelling, mass and lump, neck (principal); E04.9 Nontoxic goiter, unspecified
CPT/HCPCS: 76536

== ENCOUNTER 2024-01-09 15:59 | Outpatient (CLI) | payer OTHER, SELFPAY ==
[2024-01-09 16:26] LABS: Anion Gap 8 mmol/L (4-12); Blood Urea Nitrogen 22 mg/dL (7-17); Calcium 9.4 mg/dL (8.4-10.2); Carbon Dioxide 27 mmol/L (22-30); Chloride 107 mmol/L (98-107); Estimated Glomerular Filt Rate > 60; Glucose 99 mg/dL (65-110); Potassium 3.8 mmol/L (3.4-5.0); Sodium 142 mmol/L (137-145)
[2024-01-09 18:02] LABS: Hepatitis B Surface Antigen Negative (Negative)
[2024-01-09 18:08] LABS: HAV RESULT Negative (Negative); Hepatitis B Core IgM Result Negative (Negative)
[2024-01-09 18:20] LABS: Hepatitis C Virus Antibody Negative (Negative)
[2024-01-09 19:46] LABS: Rheumatoid Factor < 12.0 IU/ML (<12)
[2024-01-10 14:54] LABS: ANA Cascade Screen NEGATIVE (NEGATIVE)
== END 2024-01-09 16:00 | disposition home or self-care (01) ==
LOC: ANHLAB 16:00
PROVIDERS: PCP Family Medicine; Visit Provider Physician Assistant Medical
DX: N28.9 Disorder of kidney and ureter, unspecified (principal); R79.89 Other specified abnormal findings of blood chemistry; M25.50 Pain in unspecified joint; M25.40 Effusion, unspecified joint
CPT/HCPCS: 36415; 80048; 80074; 82977; 86038; 86225; 86235; 86364; 86430

== ENCOUNTER 2024-06-17 19:10 | Emergency (ER) | payer OTHER, SELFPAY ==
--- NOTE | ~2024-06-17 | XR_ITS ---
EXAMINATION: XR chest 2V DATE: 06/17/2024 20:15 INDICATION: Syncope. TECHNIQUE: Frontal and lateral views of the chest were obtained. COMPARISON: Chest 2 views 09/26/2023, chest CT 12/26/20 FINDINGS: Sensitivity is decreased by obesity. There is no pneumonia, pleural effusion, or pneumothor ax. The heart size is normal. IMPRESSION: 1. No acute cardiopulmonary disease. Sensitivity decreased by obesity. Reviewed, dictated and finalized at location A.
[2024-06-17 19:09] VITALS: BP 148/80; PULSE 78; RESP 17; TEMP 36.4; O2SAT 98
[2024-06-17 19:15] VITALS: PULSE 77
--- NOTE | 2024-06-17 19:15 | ECG_ITS ---
Test Date: 2024-06-17 19:14:13 Measurements Intervals [place] Rate: 77 P: 49 ID: [id number] QRS: 25 QRSD: 92 T: 29 QT: 417 QTc: 473 Interpretive Statements SINUS RHYTHM NONSPECIFIC T-WAVE ABNORMALITY No previous ECG available for comparison Electronically Signed On 06-18-2024 12:00:14 CDT by Dunia Mo M.D.
[2024-06-17 19:16] VITALS: O2SAT 100
--- NOTE | 2024-06-17 19:34 | ED.SYNCOPE ---
HPI - Syncope General Chief Complaint: Syncope Stated Complaint: N/V, NEAR SYNCOPE Time Seen by Provider: 06/17/24 19:25 History of Present Illness HPI narrative: 58-year-old female with no pertinent past medical history aside from hypertension presenting to the emergency room with a near syncopal event while at a today. Patient felt lightheaded, weakness in her legs and tunnel vision as well as nauseousness. She went to the bathroom and episode diarrhea. She felt like she was getting diaphoretic and almost fell to the ground. She did not actually have any syncope and her family was there with missing this. Patient is going through lot of stresses in her life as her [id number] on Monday and she had a near syncopal event night after working in the house and trying to get things prepared for the today. She denies any chest pain or difficulty breathing, headache, vision changes, present nausea or vomiting. She has received Zofran route by EMS. She states she has not been eating or drinking over the last few days and thinks she is dehydrated or having low blood sugar. No history of diabetes. Was otherwise in her normal state of health, no recent illnesses or injuries. Related Data Allergies Allergy/AdvReac Type Severity Reaction Status Date / Time No Known Allergies Allergy Verified 05/24/24 10:55 Review of Systems Review of Systems: As reviewed above in the HPI [facility], [facility] Past Medical History Medical History Body mass index [BMI] 34.0-34.9, adult (04/25/19) Body mass index [BMI] 45.0-49.9, adult (04/19/18) Body mass index [BMI]40.0-44.9, adult (03/09/17) Community acquired pneumonia Encounter for gynecological examination (general) (routine) without abnormal findings Encounter for other specified surgical aftercare Encounter for screening for malignant neoplasm of colon (03/09/17) GERD (gastroesophageal reflux disease) H/O: HTN (hypertension) Leukocytosis Pneumonia due to COVID-19 virus Positive blood culture Postmenopausal Recurrent ventral incisional hernia Vaginal dryness, menopausal Surgical History Surgical History H/O: hysterectomy History of dilation and curettage History of endometrial ablation History of total hysterectomy Previous section x 2 Family History Family History Father Hypertension Parkinson's disease Hyperlipidemia Mother Hypertension Family history of malignant neoplasm of kidney Sibling Hypertension Other Family history of malignant neoplasm Social History Social History Smoking status: Never smoker Second hand tobacco smoke exposure: No Alcohol intake: never Substance use: never Substance use type: does not use Do You Feel Safe in your Home?: Yes Lack of Transportation: No Lack of Food: Never True Current Housing: I Have Housing Concerned About Future Housing: No Difficulty Paying Gas/Electric Bills: No Difficulty Paying for Meds: No Education: Associate Degree Difficulty w/ Childcare or Family Care: No Living arrangements: with family Occupation/Education: occupation Additional occupation/education comments: RN Gender identity (if verbalized by the patient): Female Sexual Orientation (if Verbalized by the Patient): Straight or Heterosexual Spiritual care concerns: No Exam Narrative: GENERAL: [Well-appearing, well-nourished, and in no acute distress.] HEAD: [Normocephalic, atraumatic.] EYES: [PERRLA and EOMI.] ENT: Nares clear, no rhinorrhea or epistaxis. Mucous membranes moist. NECK: Supple. CHEST: [Clear to auscultation. No respiratory distress.] HEART: [Regular rate and rhythm]. No murmur heard. [Normal peripheral pulses.] ABDOM
[2024-06-17 19:36] LABS: Basophils Percent Auto 0.3 % (0.2-1.2); Eosinophils Absolute Auto 0.2 K/mm3 (0-0.3); Eosinophils Percent Auto 2.4 % (0-4.4); Hematocrit 40.4 % (37.0-47.0); Hemoglobin 13.8 g/dL (12.0-15.0); Immature Granulocyte Absolute 0.03 K/mm3 (0.00-0.031); Immature Granulocyte Percent A 0.3 % (0-0.5); Lymphocytes Absolute Auto 1.61 K/mm3 (0.9-3.2); Lymphocytes Percent Auto 17.8 % (18.3-44.2); Mean Corpuscular HGB Conc 34.2 g/dl (32-36); Mean Corpuscular Hemoglobin 31.2 pg (26-34); Mean Corpuscular Volume 91.2 fl (80-100); Mean Platelet Volume 10.5 fl (7.4-10.4); Monocytes Absolute Auto 0.6 K/mm3 (0.1-0.6); Monocytes Percent Auto 6.6 % (2.6-8.5); Neutrophils Absolute Auto 6.6 K/mm3 (1.3-6.7); Neutrophils Percent Auto 72.6 % (45.5-73.1); Platelet Count Result 178 k/mm3 (150-375); Red Blood Count 4.43 M/mm3 (4.2-5.4); Red Cell Distribution Width 13.2 % (11.5-14.5); White Blood Count 9.1 K/mm3 (4.5-10.0)
[2024-06-17 19:45] VITALS: BP 145/82; PULSE 69
[2024-06-17 19:47] VITALS: BP 140/72; PULSE 70
[2024-06-17 19:48] VITALS: BP 149/102; PULSE 84
[2024-06-17 19:48] LABS: Alanine Aminotransferase 31 U/L (6-35); Albumin Level 4.2 g/dL (3.5-5.1); Alkaline Phosphatase 71 U/L (38-126); Anion Gap 10 mmol/L (4-12); Aspartate Amino Transferase 33 U/L (14-36); Bilirubin,Total 0.6 mg/dL (0.2-1.3); Blood Urea Nitrogen 22 mg/dL (7-17); Calcium 9.1 mg/dL (8.4-10.2); Carbon Dioxide 25 mmol/L (22-30); Chloride 104 mmol/L (98-107); Estimated CRCL calculation 86 ml/min; Estimated Glomerular Filt Rate > 60; Glucose 111 mg/dL (65-110); Lipase 35 U/L (23-300); Magnesium 1.7 mg/dL (1.6-2.3); Potassium 3.7 mmol/L (3.4-5.0); Sodium 139 mmol/L (137-145)
[2024-06-17 19:49] LABS: INR 1.1; Partial Thromboplastin Time 27.5 Seconds (22.3-36.8); Prothrombin Time 14.3 Seconds (11.1-14.7)
[2024-06-17] MEDS: LACTATED RINGERS 1,000 ML 999 ML IV CONT (19:52)
[2024-06-17 19:59] LABS: Troponin I < 0.012 ng/mL (0.000-0.034)
== END 2024-06-17 20:52 | disposition home or self-care (01) ==
PROVIDERS: Emergency Provider Student in an Organized Health Care Education/Training Program; PCP Family Medicine
DX: R55 Syncope and collapse (principal); I10 Essential (primary) hypertension; K21.9 Gastro-esophageal reflux disease without esophagitis; Z87.01 Personal history of pneumonia (recurrent); Z86.16 Personal history of COVID-19
CPT/HCPCS: 36415; 71046; 80053; 83690; 83735; 84484; 85025; 85610; 85730; 93005; 96360; 99284; J7120

== ENCOUNTER 2024-08-23 15:07 | Outpatient (CLI) | payer OTHER, SELFPAY ==
[2024-08-23 16:06] LABS: Alanine Aminotransferase 32 U/L (6-35); Aspartate Amino Transferase 36 U/L (14-36)
== END 2024-08-23 15:08 | disposition home or self-care (01) ==
LOC: ANHLAB 15:09
PROVIDERS: PCP Family Medicine; Visit Provider Podiatrist Foot & Ankle Surgery
DX: B35.1 Tinea unguium (principal)
CPT/HCPCS: 36415; 84450; 84460

== ENCOUNTER 2024-10-30 13:09 | Outpatient (CLI) | payer OTHER, SELFPAY ==
--- NOTE | ~2024-10-30 | XR_ITS ---
EXAMINATION: XR hip LT 2V w AP pelvis DATE: 10/30/2024 13:33 INDICATION: Left hip pain radiating down the left leg TECHNIQUE: Anteroposterior view of the pelvis and anteroposterior and frog-leg lateral views of the l eft hip were obtained. COMPARISON: CT dated 04/24/20 FINDINGS: Bone alignment is normal. No fracture or suspected osteonecrosis. Transitional lumbosacral segment wh ich is lumbarized on the left. Moderate lower lumbar spondylosis. Linear lucency projecting across th e L5 right-sided pars interarticularis with contralateral left-sided pars intra-articular seen on [place] or CT unable be distinguished on the current radiographs. Mild osteoarthritis at the bilateral hip an d sacroiliac joints. Mild osteitis pubis. IMPRESSION: 1. Mild bilateral hip osteoarthritis. No acute osseous abnormality. 2. Moderate lower lumbar spondylosis with bilateral L5 pars intra-articular is defects but appreciate d on prior CT. Reviewed, dictated and finalized at location B. [employer] [employer] [employer] IMPRESSION: 1. Mild bilateral hip osteoarthritis. No acute osseous abnormality. 2. Moderate lower lumbar spondylosis with bilateral L5 pars intra-articular is defects but appreciated on prior CT.
--- OUTSIDE RECORDS SUMMARY | 2024-10-30 14:48 | XMS_ITS | Patient Health Summary ---
Author Organization [facility] Address [address] [place] [address] Care Team Providers Care Bilingual Speech Language Pathologist Name Role Phone Unavailable Primary Care Provider Unavailabl e Note from [facility],non-owned Affiliates and Associated Physician Practices is amultiple site organization consisting of ambulatory clinics and hospital sitesin [place], [place], [place] and [place]. This disclosure is being madepursuant to the Care Everywhere program and may not contain all information available regarding this patient. Last updated 18.[facility] Allergies No known active allergies Medications * Be aware that medications may not be up to date on this document. Alwaysverify current medications with the patient. * LOSARTAN POTASSIUM-HCTZ PO * OMEPRAZOLE PO Social History Tobacco Use Types Packs/Day Years Used Date Smoking Tobacco: Never Smokeless Tobacco: Never Sex and Gender Information Value Date Recorded Sex Assigned at Not on file Gender Identity Not on file Sexual Orientation Not on file Last Filed Vital Signs Vital Sign Reading Time Taken Comments Blood Pressure 118/72 12/28/2018 3:15 PM CDT Pulse 72 12/28/2018 3:15 PM CDT Temperature 37.2 C (98.9 F) 12/28/2018 3:15 PM CDT Respiratory Rate 18 12/28/2018 3:15 PM CDT Oxygen Saturation 97% 12/28/2018 3:15 PM CDT Inhaled Oxygen Concentration - - Weight 122.5 kg (270 lb) 12/28/2018 3:15 PM CDT Height 172.7 cm (5' 8 ) 12/28/2018 3:15 PM CDT Body Mass Index 41.05 12/28/2018 3:15 PM CDT Procedures * STREP A SCREEN - POINT OF CARE (AMB) STL(Performed 12/28/2018) Performed for Acute maxillary sinusitis, recurrence not specified Results * STREP A SCREEN - POINT OF CARE (AMB) STL (12/28/2018 3:21 PM CDT) Strep A Rapid POCT Negative Negative Strep A Internal Control Present Lot # [id number] Expiration Date 07 04 2020 Throat ENTIRE THROAT (SURFACE REGION OF NECK) / Unknown 12/28/2018 3:21 PM CDT Susan Crowell MACHINE OPERATOR [facility]-NEURORADIOLOGIST LAB - POINT OF CA RE ORDERABLES
--- OUTSIDE RECORDS SUMMARY | 2024-10-30 14:48 | XMS_ITS | Clinical Summary ---
Author Organization [facility] Address [address] [place] [address] Care Team Providers Care Die Try Out Worker Name Role Phone Unavailable Primary Care Provider Unavailabl e Source Comments [facility],non-owned Affiliates and Associated Physician Practices is amultiple site organization consisting of ambulatory clinics and hospital sitesin [place], [place], [place] and [place]. This disclosure is being madepursuant to the Care Everywhere program and may not contain all information available regarding this patient. Last updated 18.[facility] Allergies No known active allergies Medications * Be aware that medications may not be up to date on this document. Alwaysverify current medications with the patient. Medication Sig Dispensed Refills Start Date End Date Status LOSARTAN POTASSIUM-HCTZ PO Active OMEPRAZOLE PO Active Social History Tobacco Use Types Packs/Day Years [...] Mass Index 41.05 12/28/2018 3:15 PM CDT Plan of Treatment Health Maintenance Due Date Last Done Comments COLOGUARD (AGES 45-75) - COL ON CA SCREENING 1963 COLON MONITORING 1963 COLONOSCOPY - COLON CA SCREENING 1963 CT COLONOGRAPHY - COLON CA SCREENING 1963 Colorectal Cancer Screening 1963 FIT - COLON CA SCREENING 1963 FLEX SIG - COLON CA SCREENING 1963 LIPID TESTING 1963 MAMMOGRAM 1963 PAP SMEAR 1963 HIV SCREENING 11/06/1978 HEPATITIS C SCREENING 11/02/1981 DTAP/TDAP/TD VACCINES (1 - Tdap) 11/06/1982 PNEUMOCOCCAL VACCINE 50+ (1 of 1 - PCV) 11/06/2013 ZOSTER VACCINE (1 of 2) 11/06/2013 SCREENING FOR DIABETES 12/28/2018 Respiratory Syncytial Virus (RSV) Vaccine Pt: or over 60 yrs (1 - Risk 60-74 years 1-dose series) 2023 COVID-19 VACCINE ( - 2023-2 5 season) 2024 INFLUENZA VACCINE (#1) 2024 DEPRESSION SCREENING 09/04/2024 HEPATITIS B VACCINE Aged Out No longe r eligible based on patient's age to complete this topic HIB VACCINE Aged Out No longer eligi ble based on patient's age to complete this topic HPV VACCINE Aged Out No longer eligi ble based on patient's age to complete this topic MENINGOCOCCAL (Group B) VACCINE Aged Out No longer eligible based on patient's age to complete this topic MENINGOCOCCAL VACCINE Aged Out No anne poonam eligible based on patient's age to complete this topic PNEUMOCOCCAL VACCINE Aged Out No long er eligible based on patient's age to complete this topic
--- OUTSIDE RECORDS SUMMARY | 2024-10-30 14:48 | XMS_ITS | Referral Summary ---
Author Organization [facility] [employer] Address [address] [place] [address] Care Team Providers Care Closing Coordinator Name Role Phone Unavailable Primary Care Provider Unavailabl e Source Comments [facility] [employer],non-owned Affiliates and Associated Physician Practices is amultiple site organization consisting of ambulatory clinics and hospital sitesin [place], [place], [place] and [place]. This disclosure is being madepursuant to the Care Everywhere program and may not contain all information available regarding this patient. Last updated 18.[facility] Allergies No known active allergies Medications * [...] 12/28/2018 3:15 PM CDT Plan of Treatment Not on file
== END 2024-10-30 13:10 | disposition home or self-care (01) ==
PROVIDERS: PCP Family Medicine; Visit Provider Physician Assistant Medical
DX: M16.0 Bilateral primary osteoarthritis of hip (principal); M43.06 Spondylolysis, lumbar region
CPT/HCPCS: 73502

== ENCOUNTER 2024-12-02 07:24 | Outpatient (CLI) | payer OTHER, SELFPAY ==
--- OUTSIDE RECORDS SUMMARY | 2024-12-02 07:27 | XMS_ITS | Clinical Summary ---
Author Organization [facility] Address [address] [place] [address] Care Team Providers Care Air Analyst Name Role Phone Unavailable Primary Care Provider Unavailabl e Source Comments [facility],non-owned Affiliates and Associated Physician Practices is amultiple site organization consisting of ambulatory clinics and hospital sitesin [place], [place], [place] and [place]. This disclosure is being madepursuant to the Care Everywhere program and may not contain all information available regarding this patient. Last updated 18.[email or web address] Allergies No known active allergies Medications * [...] of 2) 11/06/2013 SCREENING FOR DIABETES 12/28/2018 COVID-19 VACCINE ( - 2023-2 5 season) 2024 INFLUENZA VACCINE (#1) 2024 DEPRESSION SCREENING 09/04/2024 Respiratory Syncytial Virus (RSV) Vaccine Pt: or over 60 yrs (1 - 1-dose 75+ series) 11/06/2038 HEPATITIS B VACCINE Aged Out No longe r eligible based on patient's age to complete this topic HIB VACCINE Aged Out No longer eligi ble based on patient's age to complete this topic HPV VACCINE Aged Out No longer eligi ble based on patient's age to complete this topic MENINGOCOCCAL (Group B) VACC INE SHARED DECISION-MAKING Aged Out No longer eligibl e based on patient's age to complete this topic MENINGOCOCCAL GROUPS A/C/Y/W VACCINE Aged Out No longer eligible b ased on patient's age to complete this topic PNEUMOCOCCAL VACCINE Aged Out No long er eligible based on patient's age to complete this topic
[2024-12-02 09:28] LABS: Anion Gap 11 mmol/L (4-12); Blood Urea Nitrogen 28 mg/dL (7-17); Calcium 9.4 mg/dL (8.4-10.2); Carbon Dioxide 24 mmol/L (22-30); Chloride 105 mmol/L (98-107); Estimated Glomerular Filt Rate > 60; Glucose 99 mg/dL (65-110); Potassium 3.5 mmol/L (3.4-5.0); Sodium 140 mmol/L (137-145)
== END 2024-12-02 07:25 | disposition home or self-care (01) ==
LOC: ANHLAB 07:25
PROVIDERS: PCP Family Medicine; Visit Provider Nurse Practitioner Family
DX: N28.9 Disorder of kidney and ureter, unspecified (principal)
CPT/HCPCS: 36415; 80048

== ENCOUNTER 2024-12-12 13:30 | Outpatient (RCR) | payer OTHER, SELFPAY ==
--- NOTE | 2024-12-03 10:04 | OPREHPOC ---
Outpatient Therapy Plan of Care This is a Multidisciplinary Plan of Care that may contain components documented by all disciplines (PT, OT, and ST.) PT Problem 1 PT Problem #1 Knowledge Deficit PT Goal 1 Goal / Goal Update [place] with HEP Target Visit 4 PT Goal 2 Goal / Goal Update Report no pain greater than 2/10 for 2 consecutive weeks PT Problem 2 PT Problem #2 Impaired Range of Motion PT Goal 1 Goal / Goal Update 1. Improve left hip abduction ROM to 40 degrees to improve capsular mobility 2. Demonstrate Mild piriformis restriction of left hip 3. Demonstrate full functional bilateral ankle dorsiflexion Target Visit 8 PT Problem 3 PT Problem #3 Impaired Gait PT Goal 1 Goal / Goal Update Ambulate with even stride length bilaterally Target Visit 8 PT Problem 4 PT Problem #4 Impaired Strength PT Goal 1 Goal / Goal Update Improve left hip abduction strength to 4/5 to reduce Compensated Trendelenburg and improve single leg stability Target Visit 8
--- NOTE | 2024-12-03 10:04 | PTOPEVAL1 ---
Assessment and note entered by Lobo Gutierrez, PT Evaluation Information Assessment Status Evaluation ICD-10 Condition Codes (PT) Pain in low back M54.50,Pain in left hip M25.552 Onset October 2024 Subjective Information Reports no episode of injury. She had increased hip and back pain since the end of October. She has been on an Ibuprophen regimen and on prednisone. The prednisone helped a lot when she was on it but pain came back afterwards. She was on Celebrex prior to all the pain. She has been having trouble getting comfortable at night. She has good days bad days at this time but pain is consistent. She works nights. She has a lot of trouble on stairs. Reported Pain Level Pain Score 3: Self Report Assessment PT Clinical Summary Patient presents with signs and symptoms consistent with left hip arthritis with consistent movement pattern deficits and poor congruency in motion. Loss of mobility and strength noted and reflected in gait cycle. Patient will benefit form skilled therapy to improve left functional hip mobility and promote improved lumbar stability. Plan of Care Interventions Electrical Stimulation,Gait Training,Manual Therapy,Neuro Re-education,Therapeutic Activities, Therapeutic Exercise PT Services Indicated Yes Treatment Frequency and 2x/week for 8 visits Duration These treatments will address the objective and functional deficits as defined above. The patient will be advanced safely and appropriately in order for the patient to progress towards his/her prior level of function. Additional exercises will be introduced and as well as a comprehensive home exercise program upon discharge, if needed, ?to ensure carryover of functional gains achieved in the clinic. This treatment plan has been reviewed and agreement upon by the patient.
--- NOTE | 2024-12-24 07:48 | PTOPDC ---
Assessment and note entered by Lobo Gutierrez, PT Evaluation Information Assessment Status Discharge - Pt Not Present ICD-10 Condition Codes (PT) Pain in low back M54.50,Pain in left hip M25.552 Onset October 2024 Subjective Information Patient contacted clinic requesting discharge from therapy at this time. Reports that therapy feels it is making pain worse at this time. Plans to follow up with MD. Assessment PT Clinical Summary Patient to be discharged from skilled therapy at this time. Please see last treatment note for discharge status. Plan of Care PT Services Indicated Yes
== END 2024-12-24 08:51 | disposition home or self-care (01) ==
LOC: ANHGOSHPT 13:30
PROVIDERS: PCP Family Medicine; Visit Provider Physician Assistant Medical
DX: M25.552 Pain in left hip (principal); M54.50 Low back pain, unspecified
CPT/HCPCS: 97110; 97140; 97161

== ENCOUNTER 2024-12-27 14:08 | Outpatient (CLI) | payer OTHER, SELFPAY ==
--- OUTSIDE RECORDS SUMMARY | 2024-12-27 14:12 | XMS_ITS | Clinical Summary ---
Author Organization [facility] [employer] Address [address] [place] [address] Care Team Providers Care Restorative Art Embalmer Name Role Phone Unavailable Primary Care Provider Unavailabl e Source Comments [facility] [employer],non-owned Affiliates and Associated Physician Practices is amultiple site organization consisting of ambulatory clinics and hospital sitesin [place], [place], [place] and [place]. This disclosure is being madepursuant to the Care Everywhere program and may not contain all information available regarding this patient. Last updated 18.[facility] [employer] Allergies No known active allergies Medications * Be aware that medications may not be up to date on this document. Alwaysverify current medications with the patient. LOSARTAN POTASSIUM-HCTZ PO Ac tive OMEPRAZOLE PO Active Social History Tobacco Use Types Packs/Day Years Used Date Smoking Tobacco: Never Smokeless Tobacco: Never Comments No Sex and Gender Information Value Date Recorded Sex Assigned at Not on file Legal Sex Female 3:51 AM CDT Gender Identity Not on file Sexual Orientation [...] SCREENING 1965 LIPID TESTING 1963 MAMMOGRAM 1963 HIV SCREENING 11/06/1978 HEPATITIS C SCREENING 11/02/1981 DTAP/TDAP/TD VACCINES (1 - Tdap) 11/06/1982 PNEUMOCOCCAL VACCINE 50+ (1 of 1 - PCV) 11/06/2013 ZOSTER VACCINE (1 of 2) 11/06/2013 SCREENING FOR DIABETES 12/28/2018 COVID-19 VACCINE (1 - 2023-2 5 season) 2024 DEPRESSION SCREENING 09/04/2024 INFLUENZA VACCINE (Season Ended) 2025 Respiratory Syncytial Virus (RSV) Vaccine Pt: or [...] on patient's age to complete this topic Insurance [facility]
[2024-12-27 14:47] LABS: Alanine Aminotransferase 31 U/L (6-35); Aspartate Amino Transferase 30 U/L (14-36)
== END 2024-12-27 14:09 | disposition home or self-care (01) ==
LOC: ANHLAB 14:10
PROVIDERS: PCP Family Medicine; Visit Provider Podiatrist Foot & Ankle Surgery
DX: B35.1 Tinea unguium (principal)
CPT/HCPCS: 36415; 84450; 84460

== ENCOUNTER 2025-01-07 07:26 | Outpatient (CLI) | payer OTHER, SELFPAY ==
--- NOTE | ~2025-01-07 | MR_ITS ---
MRI of the left hip Clinical history: Pain Technique: Coronal T1-weighted, T2-weighted, and proton-density fat-sat images, and axial T1-weighted and proton-density fat-sat images were acquired through the pelvis. Coronal T2-weighted images and c oronal, axial, and sagittal proton-density fat-sat images were acquired through the left hip. Findings: No acute fracture or dislocation seen. There is diffuse moderate to high-grade chondromalac ia of the left hip joint. There is extensive amorphous marrow edema of the superior aspect of the lef t femoral head, with mild extension of the femoral neck. Suspected underlying subtle subchondral insu fficiency fracture in the superior left femoral head. There is small left hip joint effusion. No defi nite left acetabular labral tear seen. There is mild to moderate diffuse chondral thinning of the right hip joint. There is focal mild amorp hous marrow edema at the superolateral aspect of the right femoral head near is junction with the fem oral neck. No right hip joint effusion. Bone marrow signals in the visualized pelvic bones otherwise are unremarkable. SI joints are intact. No muscle atrophy or edema evident about the pelvis or left hip. Visualized tendons are intact. No so ft tissue mass or fluid collection seen. No evidence for bursitis. IMPRESSION: Suspected subchondral insufficiency fracture of the left femoral head with extensive surrounding peace phous marrow edema. Underlying moderate left hip joint osteoarthritic change, as detailed above. Small left joint effusion, presumed reactive. Consider joint aspiration if there is any concern for i nflammatory or septic arthritis. Mild degenerative change of the right hip joint, probable focal reactive marrow edema at the superola teral right femoral head. Reviewed, dictated and finalized at location . IMPRESSION: Suspected subchondral insufficiency fracture of the left femoral head with exte nsive surrounding amorphous marrow edema. Underlying moderate left hip joint osteoarthritic change, as detailed above. Small left joint effusion, presumed reactive. Consider joint aspiration if ther e is any concern for inflammatory or septic arthritis. Mild degenerative change of the right hip joint, probable focal reactive marrow edema at the superolateral right femoral head.
--- OUTSIDE RECORDS SUMMARY | 2025-01-07 07:32 | XMS_ITS | Clinical Summary ---
Author Organization [facility] [employer] Address [address] [place] [address] Care Team Providers Care Chemical Operations And Training Name Role Phone Unavailable Primary Care Provider Unavailabl e Source Comments [facility] [employer],non-owned Affiliates and Associated Physician Practices is amultiple site organization consisting of ambulatory clinics and hospital sitesin [place], [place], [place] and [place]. This disclosure is being madepursuant to the Care Everywhere program and may not contain all information available regarding this patient. Last updated 18.[facility] [employer] Allergies No known active allergies Medications * [...] patient's age to complete this topic Insurance [facility] Address: [facility] [id number] [place] [address]
== END 2025-01-07 07:27 | disposition home or self-care (01) ==
PROVIDERS: PCP Family Medicine; Visit Provider Physician Assistant Surgical
DX: M25.452 Effusion, left hip (principal); M16.0 Bilateral primary osteoarthritis of hip
CPT/HCPCS: 73721